=== PATIENT | male | born 1950 | race Caucasian/White ===

== ENCOUNTER 2019-11-04 13:58 | Outpatient (CLI) | payer OTHER, SELFPAY ==
--- NOTE | ~2019-11-04 | CT_ITS ---
EXAMINATION: CT brain wo con EXAM DATE: 11/04/2019 14:23 INDICATION: Blurred vision. TECHNIQUE: Spiral CT of the head was performed without contrast. Axial, coronal and sagittal images were reviewed. The dose-length product (DLP) for this examination was 681.00 mGy-cm. The exposure w as tailored according to patient size, and iterative reconstruction (ASIR) was used as additional dos e reduction technique. Comparison is made to prior examination from 08/03/2016. FINDINGS: There is no acute intraparenchymal hemorrhage. No evidence of intraparenchymal brain mass lesion. No evidence of acute infarction. There is no mass effect or midline shift. The ventricles are normal in size. There are no extra-axial collections. There are no acute calvarial fractures. T he orbits are unremarkable. Soft tissue is unremarkable. Mild ethmoid mucoperiosteal thickening. IMPRESSION: 1. No acute intracranial findings. Reviewed, dictated and finalized at location B. [employer]
--- NOTE | ~2019-11-04 | US_ITS ---
EXAMINATION: US carotid duplex BI DATE: 11/04/2019 14:57 INDICATION: Carotid stenosis. TECHNIQUE: Grayscale, color Doppler, and pulsed Doppler images of the cervical carotid arteries were obtained. The degree of vessel stenosis is placed in one of the following categories: normal, <50%, 5 0-69%, >=70% but less than near-occlusion, near-occlusion, or total occlusion. Note that percent sten osis relative to normal distal artery lumen diameter is indirectly measured from velocity measurement s as described by Michael, et al. Radiology 2003; 229:340-346. COMPARISON: Ultrasound 08/04/2016 FINDINGS: RIGHT: The right common carotid artery (CCA) peak systolic velocity (PSV) is 58 cm/s. The right internal car otid artery (ICA) PSV is 97 cm/s. The right ICA end-diastolic velocity (EDV) is 27 cm/s. The right IC A/CCA PSV ratio is 1.7. Grayscale and color Doppler images yield an estimate of <50% diameter reducti on from plaque in the ICA. There is antegrade flow in the right vertebral artery. LEFT: The left CCA PSV is 103 cm/s. The left ICA PSV is 132 cm/s. The left ICA EDV is 32 cm/s. The left ICA /CCA PSV ratio is 1.3. Grayscale and color Doppler images yield an estimate of >=50% diameter reducti on from plaque in the ICA. There is antegrade flow in the left vertebral artery. IMPRESSION: 1. <50% stenosis in the right internal carotid artery. 2. 50-69% stenosis in the left internal carotid artery. Reviewed, dictated and finalized at location A. [employer]
== END 2019-11-04 13:59 | disposition home or self-care (01) ==
LOC: ANHIMG 14:08
PROVIDERS: PCP Family Medicine; Visit Provider Physician Assistant
DX: R41.0 Disorientation, unspecified (principal); H53.8 Other visual disturbances; I65.23 Occlusion and stenosis of bilateral carotid arteries
CPT/HCPCS: 70450; 93880

== ENCOUNTER 2020-11-15 15:27 | Emergency (ER) | payer OTHER, SELFPAY ==
[2020-11-15 16:00] VITALS: BP 92/64; PULSE 86; RESP 18; TEMP 36.4; O2SAT 99
--- NOTE | 2020-11-15 18:05 | PC.NURSE ---
pt called to go back to a room with no answer
== END 2020-11-15 18:30 | disposition left against medical advice (07) ==
PROVIDERS: PCP Family Medicine
DX: Z53.21 Procedure and treatment not carried out due to patient leaving prior to being seen by health care provider (principal)
CPT/HCPCS: 99199

== ENCOUNTER 2020-11-29 12:25 | Observation (INO) | payer OTHER, SELFPAY ==
[2020-11-29] VITALS (24 sets, daily range): BP systolic 91–183; BP diastolic 58–91; PULSE 61–102; RESP 12–27; TEMP 36–36.8; O2SAT 97–98; BMI 24.5
--- NOTE | ~2020-11-29 | MR_ITS ---
EXAMINATION: MR brain/brain stem wo/w con DATE: 11/30/2020 11:33 INDICATION: Left arm numbness TECHNIQUE: Magnetic resonance imaging (MRI) of the brain and brainstem was performed without and with 15 mL Multihance intravenous contrast. Sequences included sagittal and axial T1-weighted SE, axial d iffusion-weighted FS SE, axial T2*-weighted GRE, axial T2-weighted FLAIR, and axial T2-weighted FSE. Postcontrast axial and coronal T1-weighted SE was obtained. Apparent diffusion coefficient (ADC) maps were created. COMPARISON: CT studies dated 11/29/2020 FINDINGS: There are no areas of restricted diffusion to suggest acute infarction. There is a single tiny focus of susceptibility artifact evident on the T2*weighted images along a medial sulcus near the junction of the left superior frontal gyrus and paracentral lobule. Small choroid fissure cyst at the inferior right basal ganglia. No acute intracranial hemorrhage or abnormal intracranial mass lesion. There ar e scattered areas of nonspecific increased T2-weighted signal intensity in the cerebral white matter, predominantly involving the deep and periventricular white matter which is within normal limits for age. There are no intraparenchymal signal abnormalities seen on the other pulse sequences. The ventri cles are symmetric and normal in size. There are no abnormal extra-axial fluid collections. Flow void s are seen in the cerebral arteries on the T2-weighted sequences consistent with their expected paten cy. Mild mucosal thickening the bilateral frontal and ethmoid sinuses. Visualized orbits and soft tis sues are unremarkable. There are no areas of abnormal enhancement on the post contrast images. IMPRESSION: 1. No acute intracranial process. 2. There is a single tiny focus of susceptibility artifact along a medial sulcus near the junction of the superior frontal gyrus and paracentral lobule without corresponding abnormal enhancement, mass o r other underlying brain lesion. No evident correlate on the prior CT images this likely represents s equelae prior small bleed which could be related to hypertension, trauma or less likely vasculitis, a myloid angiopathy or cavernoma. 3. A few scattered nonspecific foci of white matter T2 hyperintensity which is within normal limits f or age. Reviewed, dictated and finalized at location A. IMPRESSION: 1. No acute intracranial process. 2. There is a single tiny focus of susceptibility artifact along a medial sulcu s near the junction of the superior frontal gyrus and paracentral lobule withou t corresponding abnormal enhancement, mass or other underlying brain lesion. No evident correlate on the prior CT images this likely represents sequelae prior small bleed which could be related to hypertension, trauma or less likely vasc ulitis, amyloid angiopathy or cavernoma. 3. A few scattered nonspecific foci of white matter T2 hyperintensity which is within normal limits for age.
--- NOTE | ~2020-11-29 | XR_ITS ---
EXAMINATION: XR chest 1V portable EXAM DATE: 11/29/2020 15:55 INDICATION: Dizziness, complaining of left arm and face pain. TECHNIQUE: Portable AP frontal chest x-ray was obtained. Comparison is made to prior examination from 08/03/2016. FINDINGS: The lungs are clear. There are no pleural effusions. The cardiomediastinal silhouette is within normal limits. There is no pneumothorax suspected. There are bony degenerative changes. Ther e is mild lower thoracic dextroscoliosis. IMPRESSION: No acute cardiopulmonary findings. Reviewed, dictated and finalized at location A.
--- NOTE | ~2020-11-29 | CT_ITS ---
EXAMINATION: CT brain wo con DATE: 11/29/2020 13:58 INDICATION: Left arm numbness, left facial tingling for 3 weeks TECHNIQUE: Computed tomography (CT) of the head was performed without intravenous contrast. The mA wa s adjusted according to patient size. Iterative reconstruction technique was employed. Exam dose: 68 1.00 mGy-cm total exam DLP. COMPARISON: November 04, 2019 CT brain 09/17/2017 MRI brain FINDINGS: Cerebral atherosclerotic calcifications involving vertebral and internal carotid arteries. Chronic right basal ganglia lacunar infarct. No intracranial mass lesion or hemorrhage or recent cerebrovascular accident is evident. No midline s hift or mass effect effect. No subdural or epidural hematoma. No skull fracture or bone destruction is evident. Included paranasal sinuses and mastoid air cells ar e unremarkable. IMPRESSION: Cerebral atherosclerosis Chronic right basal ganglia lacunar infarct Reviewed, dictated and finalized at Location A. Reviewed, dictated and finalized at location B.
--- NOTE | ~2020-11-29 | CT_ITS ---
EXAMINATION: CTA brain carotid EXAM DATE: 11/29/2020 16:54 INDICATION: Left facial , arm numbness, tingling paresthesia. Symptoms intermittent for 3 weeks. TECHNIQUE: Spiral CTA of the carotid arteries was performed with intravenous injection 100 cc of Omni paque 350. Axial, coronal, sagittal reformatted images reviewed. Additional reformatted images creat ed on dedicated 3-D workstation. NASCET comparable standard used to assess the degree of arterial st enosis. Spiral CT angiogram cerebral arteries performed with the same intravenous injection of contr ast. Source images of the brain CTA transferred to dedicated workstation for 3-D rotational image cre ation. Coronal, sagittal maximum intensity pixel images also reviewed. The dose-length product (DLP ) for this examination was 1112.74 mGy-cm. The exposure was tailored according to patient size, and iterative reconstruction (ASIR) was used as additional dose reduction technique. Correlation is made to head CT earlier same date. Comparison made to Carotid CT 05/22/2017 FINDINGS: Patient has likely had interval right carotid endarterectomy accounting for the dilated car otid bulb region up to 1.6 cm, with 0% stenosis. On the left there is moderate, common carotid and ca rotid bulb arterial sclerosis with 45% stenosis, mild progression of plaque and stenosis. Some tortuo sity to the distal aspects of both internal carotid arteries. The vertebral arteries are codominant. Mild bilateral carotid siphon arterial sclerosis with no stenosis. Patient may have incomplete [place] of [place] with communicating arteries not visualized. There may also be left-sided artery of Textile Science Technician on, congenital variant. There is no carotid or vertebral basilar arterial dissection. There are no ce rebral artery aneurysms. There is symmetric cerebral artery arborization. The sagittal, transverse an d sigmoid sinuses enhance normally, no venous sinus thrombosis. Internal cerebral veins also enhance normally. There is no acute intraparenchymal hemorrhage. No evidence of intraparenchymal brain mass lesion. N o evidence of acute infarction. There is no mass effect or midline shift. There is no obstructive hyd rocephalus suspected. There are no extra-axial collections. There are no calvarial acute fractures. There is advanced cervical spondylosis. IMPRESSION: 1. Right carotid bulb 0% stenosis. 2. Left carotid bulb moderate plaque and 45% stenosis. 3. Severe cervical spondylosis. 4. No acute intracranial findings. Reviewed, dictated and finalized at location A.
--- NOTE | 2020-11-29 13:48 | ECG_ITS ---
Measurements Intervals [place] Rate: 66 P: 47 MT: 156 QRS: -4 QRSD: 87 T: 44 QT: 411 QTc: 431 Interpretive Statements SINUS RHYTHM BASELINE ARTIFACT- I, II, AVR, V4-V6 NORMAL ECG Electronically Signed On 11-29-2020 17:49:58 CDT by Robert Jensen D.O.
--- NOTE | 2020-11-29 14:30 | ED.NEUROSD ---
HPI - Neuro Symptoms/Deficit General Chief Complaint: Neuro Symptoms/Deficit Stated Complaint: dizzy, tingling face, lt arm x 3 weeks Time Seen by Provider: 11/29/20 14:02 Source: patient Mode of arrival: ambulatory Limitations: no limitations History of Present Illness HPI Narrative: This is a 70 year old male with history of multiple medical problems who presents for evaluation left face and left arm numbness and tingling. He reports having intermittent episodes of facial tingling and left arm tingling with dizziness. This has been occurring for 3 weeks. He denies focal weakness or speech difficulties. He states 6-7 years ago he had something similar and he was found to blockage to right carotid and he had an endarterectomy. He also reports last year he was scheduled to have an MRI and echo for evaluation of dizziness and confusion. He did not get those procedures done due to covid. He reports chronic lower back pain. Onset (ago): week(s) (3) Related Data Home Medications Medication Instructions Recorded Confirmed aspirin 81 mg tablet,delayed 81 mg PO DAILY 10/21/19 11/29/20 release amitriptyline 50 mg PO .qhs 11/29/20 11/29/20 diclofenac sodium 75 mg PO DAILY 11/29/20 11/29/20 finasteride 5 mg PO DAILY 11/29/20 11/29/20 Allergies Allergy/AdvReac Type Severity Reaction Status Date / Time No Known Allergies Allergy Verified 11/29/20 12:35 Review of Systems Review of Systems: All systems reviewed & are unremarkable except as noted in HPI and below Constitutional: Constitutional: Denies chills and Denies fever(s) ENT: Reports vertigo and Reports dizziness Cardiovascular: Cardiovascular: Denies chest pain Respiratory: Respiratory: Denies cough and Denies dyspnea Gastrointestinal: Gastrointestinal: Denies abdominal pain, Reports nausea and Denies vomiting Neurologic: Reports dizziness, Denies headache(s) and Reports numbness PMFSH Past Medical History Medical History (Updated 11/29/20 @ 20:12 by Audrey Dias MD) HLD (hyperlipidemia) HTN (hypertension) Spinal stenosis Surgical History Surgical History (Updated 11/29/20 @ 14:37 by Audrey Dias MD) H/O endarterectomy Family History Family History Mother Hypertension Social History Social History (Updated 11/01/20 @ 10:57 by Mere Pritchard) Smoking status: Never smoker Second hand tobacco smoke exposure: No Alcohol intake: never Substance use: never Substance use type: does not use Gender identity (if verbalized by the patient): Male Sexual Orientation (if Verbalized by the Patient): Straight or Heterosexual Spiritual care concerns: No Exam Const: General: no acute distress and alert Orientation/consciousness: patient oriented x3 HENMT: Ears: external ears normal and TM's normal bilaterally Eyes: Pupils: Equal, round and reactive pupils present EOM: EOMs intact bilaterally Chest: Chest palpation & inspection: normal inspection of the chest Resp: Effort & Inspection: normal respiratory effort and no retractions Auscultation: clear to auscultation bilaterally Cardio: Rate: regular rate Rhythm: regular rhythm Heart sounds: no murmurs GI: GI Palp: Yes Soft to palpation, No Tenderness to palpation present (GI) and No Guarding due to palpation present (GI) Auscultation: normal bowel sounds Skin: General skin exam: normal color Rashes: no rashes Neuro: General: patient oriented x3, moves all extremities, no focal motor deficits and CN's II-XI intact bilaterally Cranial nerves: Yes Nystagmus not present Speech: normal speech Psych: Mental Status: mental status grossly normal Affect: normal affect Course Reevaluation(s) Reevaluation #1: I made patient aware that he will be admitted to hospital for further evaluation. Date: 11/29/20 Time: 16:20 Consultations Consultation #1: I Discussed case with Marietta Rosa and she accepts t
[2020-11-29 15:04] LABS: Basophils Absolute Auto 0.1 K/mm3 (0.0-0.1); Eosinophils Absolute Auto 0.7 K/mm3 (0-0.3); Eosinophils Percent Auto 9.5 % (0-4.4); Hemoglobin 13.6 g/dL (14.0-18.0); Immature Granulocyte Absolute 0.02 K/mm3 (0.00-0.031); Immature Granulocyte Percent A 0.3 % (0-0.5); Lymphocytes Absolute Auto 1.54 K/mm3 (0.9-3.2); Lymphocytes Percent Auto 22.2 % (18.3-44.2); Mean Corpuscular HGB Conc 33.2 g/dl (32-36); Mean Corpuscular Hemoglobin 29.8 pg (26-34); Mean Corpuscular Volume 89.7 fl (80-100); Monocytes Absolute Auto 0.4 K/mm3 (0.1-0.6); Monocytes Percent Auto 6.3 % (2.6-8.5); Neutrophils Absolute Auto 4.2 K/mm3 (1.3-6.7); Neutrophils Percent Auto 60.7 % (45.5-73.1); Platelet Count Result 279 k/mm3 (150-375); Red Blood Count 4.57 M/mm3 (4.6-6.20); Red Cell Distribution Width 14.9 % (11.5-14.5); White Blood Count 6.9 K/mm3 (4.5-10.0)
[2020-11-29 15:11] LABS: Anion Gap 2 mmol/L (8-16); Blood Urea Nitrogen 21 mg/dL (9-20); Calcium 9.5 mg/dL (8.4-10.2); Carbon Dioxide 29 mmol/L (22-30); Chloride 110 mmol/L (98-107); Estimated CRCL calculation 51 ml/min; Estimated Glomerular Filt Rate 55; Glucose 103 mg/dL (75-110); INR 0.9; Potassium 3.7 mmol/L (3.4-5.0); Sodium 141 mmol/L (137-145)
[2020-11-29 15:12] LABS: Partial Thromboplastin Time 29.3 SECONDS (22.3-36.8)
[2020-11-29 15:23] LABS: Troponin I < 0.012 ng/mL (0.000-0.034)
[2020-11-29] MEDS: LACTATED RINGERS 1,000 ML 999 ML IV CONT (15:31)
--- NOTE | 2020-11-29 17:39 | ADMGEN ---
This patient, Reese Lynch Jr., was admitted to [facility] Surg Room 320-01. Patient/family oriented to hospital policies and general routines including ID bracelet, bed and alarms, visiting hours, pain management, procedures, bathroom and other care routines, personal items, smoking policy, room service/diet, and visiting hours. Information on how to activate the Rapid Response Team has been discussed. Patient/Family are encouraged to report perceived risks to care and to ask questions if they do not understand what they are told or what they should do.
--- NOTE | 2020-11-29 20:50 | PM.IMHP ---
H&P: HPI History of Present Illness Date/Time: 11/29/20 20:50 Chief Complaint: Left-sided paresthesias. Narrative: This is a very pleasant 70-year-old male with history of CVA, right carotid artery stenosis status post carotid endarterectomy, hypertension, and hyperlipidemia presented to the emergency department earlier today via private vehicle from home for evaluation of left-sided paresthesias. Over the past 3 weeks he has had intermittent episodes of tingling, mainly in the left side of his face but occasionally down his left arm. He sees no pattern as to when these occur and they do not last very long. He has mild dizziness with some of these episodes as well however he goes on to say that for the past several months he has been having issues with dizziness and confusion, more so when driving at night. His primary care provider ordered an echocardiogram an MRI on him couple of months ago however he has not had that done yet due to COVID. At the time my evaluation he does not have any symptoms. He states compliance with his home medication. He has not had any recent falls or head trauma. He denies focal weakness. No acute auditory or visual changes. He has not noticed any facial droop with these episodes. No involvement of the tongue. No dysarthria or dysphagia. Review of Systems Review of Systems: Narrative: Twelve systems were reviewed with pertinent positives and negatives as per HPI. As per HPI, intermittently over the last several months he has had issues with confusion, mainly when driving at nighttime. In fact at 1 point time he drove 75 miles away from his home and did not know where he was or how he got there. He has been having mild episodes of confusion at home as well, but cannot give me any specific examples. No recent cold or flu symptoms. He denies fever, chills, and sweats. No sick contacts. He denies chest pain palpitations. No nausea, vomiting, or diarrhea. No dysuria. Except as documented, other systems were reviewed and are negative. [facility] Past Medical History Medical History (Updated 11/29/20 @ 23:02 by Marietta Rosa PA-C) Anemia Anxiety Benign prostatic hyperplasia Carotid artery disease Status post right carotid endarterectomy. Left carotid bulb moderate plaque and 45% stenosis on CTA of the head and neck dated 11/29/2020. Cerebrovascular accident (~07/2016) Attributed to carotid artery disease. Status post right carotid endarterectomy. Depression Diastolic dysfunction Echocardiogram in July 2016 showed normal left ventricular systolic function, mild LVH, and grade 1 diastolic dysfunction with an ejection fraction of 60%. Gastroesophageal reflux disease History of kidney stones History of staph infection (~2009) Staph pneumonia, possible empyema. Hyperlipidemia Hypertension Spinal stenosis Surgical History Surgical History (Updated 11/29/20 @ 22:58 by Marietta Rosa PA-C) History of arthroscopy of right knee History of bilateral carpal tunnel release History of right-sided carotid endarterectomy History of spinal surgery Family History Family History Mother Hypertension Social History Social History (Updated 11/29/20 @ 22:59 by Marietta Rosa PA-C) Social History: Surrogate decision maker: Laron Lynch, son. Code status: Full code. Smoking status: Never smoker Second hand tobacco smoke exposure: No Alcohol intake: never Substance use: never Substance use type: does not use Additional living arrangements comments: Lives in [place]. One son lives at home with him. 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 Gender identity (if verbalized by the patient): Male Sexual Orientation (if Verbalized by the Patient): Straight or Heterosexual Spiritual care concerns: No Meds Home Medications and Allergies Home Medications Medication
[2020-11-30] VITALS (8 sets, daily range): BP systolic 98–154; BP diastolic 48–84; PULSE 59–93; RESP 16; TEMP 36.4–36.7; O2SAT 97–98
[2020-11-30] MEDS: AMITRIPTYLINE HCL 25 MG TABLET 50 MG PO (00:18)
--- NOTE | 2020-11-30 06:00 | ECHO_ITS ---
Patient Info Name: Reese Lynch Age: 70 years : 1950 Gender: Male Ht: 71 in Wt: 175 lbs BSA: 2.00 m2 BP: 171 / 83 mmHg Exam Date: 11/30/2020 1:23 PM Exam Location: [facility] Pulmonary Patient Status: Outpatient Admit Date: 11/29/2020 Staff Ordering Physician: Audrey Dias MD Loan Manager: Enoch Og RDCS, RT Attending Provider: Juliana Blackwell PA-C Referring Physician: Arun PEARSON; Exam Type: CA echo doppler color flow Study Info Indications G45.8 - Other transient cerebral ischemic attacks and related syndromes Complete two-dimensional, color flow and Doppler transthoracic echocardiogram is performed. Strain analysis performed. Summary 1. Complete two-dimensional, color flow and Doppler transthoracic echocardiogram is performed. 2. Left ventricular chamber dimension is normal. 3. Left ventricular systolic function is normal, estimated at 65-70%. 4. The left ventricular diastolic function is grade I diastolic dysfunction. 5. E/e' 7 is not elevated. 6. Global longitudinal strain is normal at -22.0%. 7. There is mild aortic valve sclerosis. Left Ventricle E/e' 7 is not elevated. Global longitudinal strain is normal at -22.0%. Left ventricular chamber dimension is normal. Left ventricular systolic function is normal, estimated at 65-70%. The left ventricular diastolic function is grade I diastolic dysfunction. Right Ventricle Right ventricular chamber dimension is normal. Right ventricular systolic function is normal. Left Atria Left atrial chamber dimension is normal. Right Atria Right atrial chamber dimension is normal. Aortic Valve The aortic valve is trileaflet. There is mild aortic valve sclerosis. There is no aortic valve stenosis. There is no aortic valve regurgitation. Pulmonic Valve There is no pulmonic regurgitation. Mitral Valve There is no mitral valve stenosis. There is no mitral valve regurgitation. Tricuspid Valve There is no tricuspid valve regurgitation. Pericardium/Pleural There is no pericardial effusion. Inferior Vena Cava Normal inferior vena cava with >50% collapse upon inspiration consistent with normal right atrial pressure, 5 mmHg. Aorta The aortic root size at the sinus of Valsalva is normal. Left Ventricular Outflow Tract Name Value Normal LVOT 2D LVOT Diameter 2.0 cm LVOT Doppler LVOT Peak Gradient 4 mmHg LVOT Mean Gradient 2 mmHg LVOT VTI 22 cm LVOT VTI/AV VTI Ratio 0.7 LVOT Stroke Volume 68 ml LVOT CO 4.4 l/min LVOT CI 2.2 l/min/m2 Mitral Valve Name Value Normal MV Doppler MV Decel [place] 206 cm/s2 MV PHT
[2020-11-30 06:16] LABS: Hematocrit 37.5 % (42.0-52.0); Hemoglobin 12.2 g/dL (14.0-18.0); Mean Corpuscular HGB Conc 32.5 g/dl (32-36); Mean Corpuscular Hemoglobin 28.9 pg (26-34); Mean Corpuscular Volume 88.9 fl (80-100); Mean Platelet Volume 9.9 fl (7.4-10.4); Platelet Count Result 248 k/mm3 (150-375); Red Blood Count 4.22 M/mm3 (4.6-6.20); Red Cell Distribution Width 14.6 % (11.5-14.5); White Blood Count 6.7 K/mm3 (4.5-10.0)
[2020-11-30 06:27] LABS: Alanine Aminotransferase 10 U/L (4-50); Albumin Level 3.6 g/dL (3.5-5.1); Alkaline Phosphatase 78 U/L (38-126); Anion Gap 5 mmol/L (8-16); Aspartate Amino Transferase 20 U/L (17-59); Bilirubin,Total 0.3 mg/dL (0.2-1.3); Blood Urea Nitrogen 18 mg/dL (9-20); Calcium 9.1 mg/dL (8.4-10.2); Carbon Dioxide 27 mmol/L (22-30); Chloride 111 mmol/L (98-107); Cholesterol 114 mg/dL (0-200); Estimated CRCL calculation 66 ml/min; Estimated Glomerular Filt Rate > 60; Glucose 89 mg/dL (75-110); HDL Direct 34 mg/dL; Potassium 3.4 mmol/L (3.4-5.0); Sodium 143 mmol/L (137-145); Triglycerides 108 mg/dL (<150)
[2020-11-30 06:38] LABS: LDL Cholesterol Direct 58 mg/dL
[2020-11-30] MEDS: TAMSULOSIN HCL 0.4 MG CAPSULE PO (08:33)
[2020-11-30] MEDS: DULoxetine HCL 60 MG CAPSULE.DR PO (08:33)
[2020-11-30] MEDS: FINASTERIDE 5 MG TABLET PO (08:33)
[2020-11-30] MEDS: ATORVASTATIN 20 MG TABLET PO (08:34)
[2020-11-30] MEDS: buPROPion HCL XL (24 HR) 150 MG TABCR PO (08:34)
[2020-11-30] MEDS: CLOPIDOGREL BISULFATE 75 MG TABLET PO (08:34)
[2020-11-30] MEDS: amLODIPine BESYLATE 5 MG TABLET 10 MG PO (08:34)
[2020-11-30] MEDS: ASPIRIN 81 MG ENTERIC TABLET PO (08:34)
[2020-11-30] MEDS: PANTOPRAZOLE 40 MG TABLET PO (08:34)
--- NOTE | 2020-11-30 11:11 | WPDNEURCNPN ---
Assessment and Plan Assessment and plan (1) Hyperlipidemia: Code(s): E78.5 - Hyperlipidemia, unspecified Status: Acute (2) Hypertension: Code(s): I10 - Essential (primary) hypertension Status: Acute (3) Paresthesia: Code(s): R20.2 - Paresthesia of skin Status: Acute (4) HTN (hypertension): Code(s): I10 - Essential (primary) hypertension Status: Acute (5) TIA (transient ischemic attack): Code(s): G45.9 - Transient cerebral ischemic attack, unspecified Status: Acute Additional Plan possibility of the TIA, at present will continue the medication as such after the MRI if necessary will continue the Plavix only for 4 weeks Consult date: 11/30/20 Time Seen: 09:45 HPI: Reese Lynch Joao is a 70 year old male has been admitted to the hospital through the emergency room where he was brought by the private vehicle from home for the complaints of left-sided paresthesias along with the complaints of mild dizziness of several months duration. patient was suggested to have the echocardiogram and MRI but he was unable to go through because of the COVID he is taking his medications regularly, does have ongoing history of anemia, anxiety, status post right carotid endarterectomy with left carotid bulb moderate plaque and 45% stenosis and is scheduled to have the CTA of the head and neck on November 29, 2020 additionally has history of cardiac dysfunction hypertension and spinal stenosis. at this stage he is receiving clopidogrel 75 mg daily along with aspirin 81 mg daily atorvastatin 20 mg daily and other medications as well, evaluation up until now revealed the none no significant routine lab abnormal UA, CTA with left carotid bulb moderate plaque and 45% stenosis along with severe cervical spondylosis but no acute intracranial findings, chest x-ray is negative, and MRI of the brain at this stage is pending Review of Systems Review of Systems: All systems reviewed & are unremarkable except as noted in HPI and below PMFSH Past Medical History Medical History Anemia Anxiety Benign prostatic hyperplasia Carotid artery disease Status post right carotid endarterectomy. Left carotid bulb moderate plaque and 45% stenosis on CTA of the head and neck dated 11/29/2020. Cerebrovascular accident (~07/2016) Attributed to carotid artery disease. Status post right carotid endarterectomy. Depression Diastolic dysfunction Echocardiogram in July 2016 showed normal left ventricular systolic function, mild LVH, and grade 1 diastolic dysfunction with an ejection fraction of 60%. Gastroesophageal reflux disease History of kidney stones History of staph infection (~2009) Staph pneumonia, possible empyema. Hyperlipidemia Hypertension Spinal stenosis Surgical History Surgical History History of arthroscopy of right knee History of bilateral carpal tunnel release History of right-sided carotid endarterectomy History of spinal surgery Family History Family History Mother Hypertension Social History Social History (Updated 11/29/20 @ 22:59 by Marietta Rosa PA-C) Social History: Surrogate decision maker: Laron Lynch, jacob. Code status: Full code. Smoking status: Never smoker Second hand tobacco smoke exposure: No Alcohol intake: never Substance use: never Substance use type: does not use Additional living arrangements comments: Lives in [place]. One son lives at home with him. 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 Gender identity (if verbalized by the patient): Male Sexual Orientation (if Verbalized by the Patient): Straight or Heterosexual Spiritual care concerns: No Meds Home Medications and Allergies Home Medications Medication Instructions Rec
[2020-11-30] MEDS: CYANOCOBALAMIN 1,000 MCG TABLET 1000 MCG PO (15:10)
--- NOTE | 2020-11-30 17:25 | PM.DS ---
DS: Admitting Diagnosis Admitting Diagnosis Admitting Diagnosis: Paresthesias DS: Discharge Diagnosis Discharge Diagnosis (1) TIA (transient ischemic attack): Code(s): G45.9 - Transient cerebral ischemic attack, unspecified Status: Acute Assessment and Plan: Discharge Summary (Date of service 11/30/20): Mr. Lynch is a 70 y.o. male with PMH significant for history of CVA, right carotid artery stenosis status post carotid endarterectomy, hypertension, and hyperlipidemia presented to the emergency department via private vehicle from home for evaluation of left-sided paresthesias for 3 weeks. He noted intermittent tingling in the left side of his face and occasionally down the left arm. He also noted some occasional confusion and dizziness with night driving. On chart review, he saw his PCP for these complaints 10/[address] brain and carotid doppler US at that time. He was also referred to his vascular surgeon for concern regarding his confusion and dizziness at night 11/2019 and CTA head and neck was recommended at that time. On arrival to the emergency department, vitals were stable. Labs were notable for mild normocytic anemia with Hb 13.6 and Hct 41. Chloride was [address] brain demonstrated a chronic right basal ganglia lacunar infarct and cerebral atherosclerosis. CTA head and neck demonstrated no evidence of acute infarct or mass lesion. There was findings of interval right CEA with 0% stenosis and moderate left common carotid and carotid bulb sclerosis with 45% stenosis. Neurology, Dr. Marvin, was consulted from the emergency department and recommended plavix. TPA was not indicated given prolonged duration of symptoms and NIHSS 2 with minor symptoms. He was admitted to the hospitalist service with neurology consultation. Telemetry demonstrated sinus rhythm. Echocardiogram was performed and demonstrated normal LV dimension with EF 65-70%, grade I diastolic dysfunction, and mild aortic valve sclerosis. MRI demonstrated no acute infarction. There was a single tiny focus of susceptibility artifact at the junction of the left superior frontal gyrus and para central lobule which radiology read as likely insurance follow up representative of a prior small bleed related to hypertension or trauma and less likely vasculitis, amyloid angiopathy, or cavernoma . This finding was reviewed with Dr. Marvin, neurologist, who recommended that the patient continue DAPT with ASA and plavix for 1 month. He will see him outpatient in 2-3 weeks to discuss any further necessary workup and plans to either continue or discontinue plavix. He will likely benefit from follow-up brain MRI in 3-6 months and will follow-up with Dr. Marvin outpatient. His vitamin B12 level was also borderline low and was supplemented with oral cyanocobalamin. He was advised to keep a blood pressure log and follow-up with his primary care doctor in [address] Marvin in 2-3 weeks. Worrisome signs and symptoms which would warrant return to the emergency department were discussed and he verbalized understanding. (2) Paresthesia: Code(s): R20.2 - Paresthesia of skin Status: Acute Assessment and Plan: Patient reports intermittent paresthesias on the left side of his face and left upper extremity intermittently over 3 weeks. Concerning given his history of CVA. Monitor on telemetry overnight. Brain MRI and echocardiogram in a.m. CTA of the head and neck demonstrates left carotid bulb with moderate plaque and 45% stenosis. Right carotid bulb had 0% stenosis, status post carotid endarterectomy. Continue aspirin and statin. He was given a dose of clopidogrel in the emergency department I will defer to Dr. Marvin whether not to continue that, depending on his MRI. Check B12 levels as well given paresthesias. (3) Hyperlipidemia: Code(s): E78.5 - Hyperlipidemia, unspecified Status: Acute Assessment and Plan: LFTs reviewed and normal. Lipid panel at target w
--- NOTE | 2020-11-30 18:07 | PC.NURSE ---
Pt has discharge orders. Pt's IV has been removed, and tele alarm has been removed. Discharge paperwork has been reviewed with pt, with opportunities for questions provided. Pt exhibited good understanding of all discharge instructions. Pt will be assisted to the front of the building by staff, in a wheelchair.
== END 2020-11-30 08:15 | disposition home or self-care (01) ==
LOC: ANHED 14:28 → ANH3MEDSUR 16:15
PROVIDERS: Physician Assistant; Admitting Provider Family Medicine; Emergency Provider General Practice; PCP Family Medicine; Visit Provider Physician Assistant
DX: G45.9 Transient cerebral ischemic attack, unspecified (principal); R20.2 Paresthesia of skin; E78.5 Hyperlipidemia, unspecified; D64.9 Anemia, unspecified; I11.9 Hypertensive heart disease without heart failure; I35.8 Other nonrheumatic aortic valve disorders; I95.1 Orthostatic hypotension; E53.8 Deficiency of other specified B group vitamins; K21.9 Gastro-esophageal reflux disease without esophagitis; F41.8 Other specified anxiety disorders; N40.0 Benign prostatic hyperplasia without lower urinary tract symptoms; Z86.73 Personal history of transient ischemic attack (TIA), and cerebral infarction without residual deficits; Z79.82 Long term (current) use of aspirin
CPT/HCPCS: 36415; 70450; 70496; 70498; 70553; 71045; 80048; 80053; 80061; 82607; 83735; 84443; 84484; 85025; 85027; 85610; 85730; 93005; 93306; 96360; 99285; A9270; A9577; G0378; J7120; Q9967

== ENCOUNTER 2020-12-15 14:37 | Emergency (ER) | payer OTHER, SELFPAY ==
[2020-12-15 14:46] VITALS: BP 121/79; PULSE 85; RESP 18; TEMP 36.1; O2SAT 95
--- NOTE | 2020-12-15 16:41 | ED.EAR ---
HPI - Ear Problem General Chief complaint: Ear Stated complaint: bleeding inside lt ear Time Seen by Provider: 12/15/20 16:09 Source: patient Mode of arrival: ambulatory Limitations: no limitations History of Present Illness HPI Narrative: Patient is a 70-year-old male complaining of bleeding in his left ear, started after he was cleaning it with a Q-tip. Patient denies any other injuries or bleeding. MD Complaint: ear pain Location: left ear Relieving factors: nothing Exacerbating factors: nothing Related Data Home Medications Medication Instructions Recorded Confirmed aspirin 81 mg tablet,delayed 81 mg PO DAILY 10/21/19 11/29/20 release diclofenac sodium 75 mg PO DAILY 11/29/20 11/29/20 finasteride 5 mg PO DAILY 11/29/20 11/29/20 Allergies Allergy/AdvReac Type Severity Reaction Status Date / Time No Known Allergies Allergy Verified 12/15/20 15:18 Review of Systems Review of Systems: All systems reviewed & are unremarkable except as noted in HPI and below PMFSH Past Medical History Medical History Anemia Anxiety Benign prostatic hyperplasia Carotid artery disease Status post right carotid endarterectomy. Left carotid bulb moderate plaque and 45% stenosis on CTA of the head and neck dated 11/29/2020. Cerebrovascular accident (~07/2016) Attributed to carotid artery disease. Status post right carotid endarterectomy. Depression Diastolic dysfunction Echocardiogram in July 2016 showed normal left ventricular systolic function, mild LVH, and grade 1 diastolic dysfunction with an ejection fraction of 60%. Gastroesophageal reflux disease History of kidney stones History of staph infection (~2009) Staph pneumonia, possible empyema. Hyperlipidemia Hypertension Spinal stenosis Surgical History Surgical History History of arthroscopy of right knee History of bilateral carpal tunnel release History of right-sided carotid endarterectomy History of spinal surgery Family History Family History Mother Hypertension Social History Social History Social History: Surrogate decision maker: Laron Lynch, son. Code status: Full code. Smoking status: Never smoker Second hand tobacco smoke exposure: No Alcohol intake: never Substance use: never Substance use type: does not use Additional living arrangements comments: Lives in [place]. One son lives at home with him. 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 Gender identity (if verbalized by the patient): Male Spiritual care concerns: No Exam Const: General: cooperative, healthy appearing, comfortable, no acute distress, well developed, alert and awake; No confusion Orientation/consciousness: oriented to person, oriented to place, oriented to time, patient oriented x3 and No confusion Limitations: no limitations HENMT: Head: normal to inspection, normocephalic and atraumatic Ears: hearing grossly normal bilaterally, TM normal on the right and TM abnormal (Blood in the left external ear canal, perforation of the left tympanic memb) General nose exam: Normal external nose present, Normal nares present and No nasal discharge present Face and sinus: normal facial exam Mouth: Yes Normal oral and palatal mucosa present, Yes lip normal, Yes tongue normal and Yes oropharynx normal Throat: posterior oropharynx normal, tonsils normal and uvula midline Eyes: General: appearance normal, both eyes and all related structures Pupils: Equal, round and reactive pupils present EOM: EOMs intact bilaterally Neck: Neck: normal visual inspection, full ROM, no lymphadenopathy and no meningeal signs Resp: Effort & Inspection: normal respiratory effort, able to speak in complete se
== END 2020-12-15 16:58 | disposition home or self-care (01) ==
PROVIDERS: Emergency Provider Emergency Medicine; PCP Family Medicine
DX: H72.92 Unspecified perforation of tympanic membrane, left ear (principal); Z79.82 Long term (current) use of aspirin; I25.10 Atherosclerotic heart disease of native coronary artery without angina pectoris; E78.5 Hyperlipidemia, unspecified; I10 Essential (primary) hypertension; N40.0 Benign prostatic hyperplasia without lower urinary tract symptoms; K21.9 Gastro-esophageal reflux disease without esophagitis; Z86.73 Personal history of transient ischemic attack (TIA), and cerebral infarction without residual deficits; Z87.442 Personal history of urinary calculi; Z86.2 Personal history of diseases of the blood and blood-forming organs and certain disorders involving the immune mechanism
CPT/HCPCS: 99283

== ENCOUNTER 2021-06-29 03:21 | Day surgery (SDC) | payer OTHER, SELFPAY ==
[2021-06-20 13:09] VITALS: BMI 23.1
[2021-06-20 13:19] VITALS: BMI 22.3
--- NOTE | 2021-06-28 09:52 | WPDANESEPPF ---
Anes - Initial Pre Proc Eval Procedure: Operation Date: 06/29/21 13:00 Proposed Procedures p Colonoscopy - Karl Olivares MD Date/Time: 06/28/21 09:52 Surgeon: Karl Olivares MD Pre Op Diagnosis: positive cologuard Patient Data Age: 70 Gender: M Height: 1.8 m Weight: 72.5 kg Allergies Allergy/AdvReac Type Severity Reaction Status Date / Time No Known Allergies Allergy Verified 06/29/21 12:06 Home Medications Medication Instructions Recorded Confirmed Type aspirin 81 mg tablet,delayed 81 mg PO DAILY 10/21/19 06/20/21 History release duloxetine 60 mg capsule,delayed 60 mg PO DAILY #90 cap 02/08/21 06/20/21 Rx release finasteride 5 mg tablet 5 mg PO DAILY #90 tablet 02/08/21 06/20/21 Rx tamsulosin 0.4 mg capsule 0.4 mg PO DAILY #90 cap 02/08/21 06/20/21 Rx amitriptyline 50 mg tablet 50 mg PO QHS #90 tablet 05/03/21 06/20/21 Rx bupropion HCl 150 mg 24 hr tablet, 150 mg PO QAM #90 tablet 05/18/21 06/20/21 Rx extended release amlodipine 10 mg tablet 10 mg PO DAILY #90 tablet 05/20/21 06/20/21 Rx diclofenac sodium 75 mg 75 mg PO BID PRN #60 tablet 05/31/21 06/20/21 Rx tablet,delayed release clopidogrel 75 mg tablet 75 mg PO QAM #90 tablet 06/13/21 06/20/21 Rx atorvastatin 40 mg tablet 40 mg PO DAILY 30 Days #30 tablet 06/27/21 Rx cyanocobalamin (vitamin B-12) 1,000 mcg PO QAM 30 Days #30 tablet 06/27/21 Rx 1,000 mcg tablet pantoprazole 40 mg tablet,delayed 40 mg PO QAM 30 Days #30 tablet 06/27/21 Rx release Patient hx anesthesia problems: none Family hx anesthesia problems: none Results Review: All pre-operative results and documents have been reviewed as part of the pre-operative evaluation. [facility] Past Medical History Medical History Anemia Anxiety Benign prostatic hyperplasia Carotid artery disease Status post right carotid endarterectomy. Left carotid bulb moderate plaque and 45% stenosis on CTA of the head and neck dated 11/29/2020. Cerebrovascular accident (~07/2016) Attributed to carotid artery disease. Status post right carotid endarterectomy. Depression Diastolic dysfunction Echocardiogram in July 2016 showed normal left ventricular systolic function, mild LVH, and grade 1 diastolic dysfunction with an ejection fraction of 60%. Gastroesophageal reflux disease History of kidney stones History of staph infection (~2009) Staph pneumonia, possible empyema. Hyperlipidemia Hypertension Spinal stenosis Surgical History Surgical History History of arthroscopy of right knee History of bilateral carpal tunnel release History of right-sided carotid endarterectomy History of spinal surgery Family History Family History Mother Hypertension Social History Social History Social History: Surrogate decision maker: Laron Lynch, son. Code status: Full code. Smoking status: Never smoker Second hand tobacco smoke exposure: No Alcohol intake: never Substance use: current Substance use type: marijuana Other substance usage details: EVERY DAY Last use: 4 hours ago - pain to relax Living arrangements: with family Additional living arrangements comments: Lives in [place]. One son lives at home with him. 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 Gender identity (if verbalized by the patient): Male Sexual Orientation (if Verbalized by the Patient): Straight or Heterosexual Spiritual care concerns: No Anes - Eval Final PreProcedure Day of Procedure 06/28/21 09:52 Patient weight: normal Heart: regular rate and rhythm Lungs: clear to auscultation and normal air movement Airway: Mallampati scale class II Neurological: alert and oriented Last oral intake:
--- NOTE | 2021-06-28 14:26 | PM.HPGS ---
History of Present Illness History of Present Illness Consent: Risks, benefits, and alternatives have been discussed and questions answered. Patient agrees to proceed with procedure. Chief complaint: positive cologuard Narrative: Reese Lynch Jr. is a 70 year old male referred for colon cancer screening. He recently performed a Cologuard test that was positive Review of Systems Review of Systems: All systems reviewed & are unremarkable except as noted in HPI and below PMFSH Past Medical History Medical History Anemia Anxiety Benign prostatic hyperplasia Carotid artery disease Status post right carotid endarterectomy. Left carotid bulb moderate plaque and 45% stenosis on CTA of the head and neck dated 11/29/2020. Cerebrovascular accident (~07/2016) Attributed to carotid artery disease. Status post right carotid endarterectomy. Depression Diastolic dysfunction Echocardiogram in July 2016 showed normal left ventricular systolic function, mild LVH, and grade 1 diastolic dysfunction with an ejection fraction of 60%. Gastroesophageal reflux disease History of kidney stones History of staph infection (~2009) Staph pneumonia, possible empyema. Hyperlipidemia Hypertension Spinal stenosis Surgical History Surgical History History of arthroscopy of right knee History of bilateral carpal tunnel release History of right-sided carotid endarterectomy History of spinal surgery Family History Family History Mother Hypertension Social History Social History Social History: Surrogate decision maker: Laron Lynch, son. Code status: Full code. Smoking status: Never smoker Second hand tobacco smoke exposure: No Alcohol intake: never Substance use: current Substance use type: marijuana Other substance usage details: EVERY DAY Last use: 4 hours ago - pain to relax Living arrangements: with family Additional living arrangements comments: Lives in [place]. One son lives at home with him. 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 Gender identity (if verbalized by the patient): Male Sexual Orientation (if Verbalized by the Patient): Straight or Heterosexual Spiritual care concerns: No Meds Home Medications and Allergies Home Medications Medication Instructions Recorded Confirmed Type aspirin 81 mg tablet,delayed 81 mg PO DAILY 10/21/19 06/20/21 History release duloxetine 60 mg capsule,delayed 60 mg PO DAILY #90 cap 02/08/21 06/20/21 Rx release finasteride 5 mg tablet 5 mg PO DAILY #90 tablet 02/08/21 06/20/21 Rx tamsulosin 0.4 mg capsule 0.4 mg PO DAILY #90 cap 02/08/21 06/20/21 Rx amitriptyline 50 mg tablet 50 mg PO QHS #90 tablet 05/03/21 06/20/21 Rx bupropion HCl 150 mg 24 hr tablet, 150 mg PO QAM #90 tablet 05/18/21 06/20/21 Rx extended release amlodipine 10 mg tablet 10 mg PO DAILY #90 tablet 05/20/21 06/20/21 Rx diclofenac sodium 75 mg 75 mg PO BID PRN #60 tablet 05/31/21 06/20/21 Rx tablet,delayed release clopidogrel 75 mg tablet 75 mg PO QAM #90 tablet 06/13/21 06/20/21 Rx atorvastatin 40 mg tablet 40 mg PO DAILY 30 Days #30 tablet 06/27/21 Rx cyanocobalamin (vitamin B-12) 1,000 mcg PO QAM 30 Days #30 tablet 06/27/21 Rx 1,000 mcg tablet pantoprazole 40 mg tablet,delayed 40 mg PO QAM 30 Days #30 tablet 06/27/21 Rx release Allergies Allergy/AdvReac Type Severity Reaction Status Date / Time No Known Allergies Allergy Verified 06/20/21 13:09 Exam Resp: Auscultation: clear to auscultation bilaterally Cardio: Rate: regular rate Rhythm: regular rhythm GI: GI Palp: Yes Soft to palpation and No Tenderness to palpation present (GI) Assessment and Plan Assessment an
[2021-06-29 11:50] VITALS: BP 154/77; PULSE 93; RESP 16; TEMP 36.7; O2SAT 97; BMI 23.7
[2021-06-29] MEDS: LACTATED RINGERS 1,000 ML 150 ML IV CONT (12:28)
[2021-06-29 12:58] VITALS: BP 124/77; PULSE 59; RESP 19; O2SAT 99
[2021-06-29 13:08] VITALS: BP 101/68; PULSE 79; RESP 20; O2SAT 98
[2021-06-29] MEDS: ONDANSETRON INJ 4 MG/2 ML VIAL IV PUSH (13:09)
[2021-06-29 13:18] VITALS: BP 126/68; PULSE 78; RESP 19; O2SAT 97
--- NOTE | 2021-06-29 13:34 | SUR.PHASEII ---
per md torrez pt is to restart plavix today.
== END 2021-06-29 13:37 | disposition home or self-care (01) ==
PROVIDERS: PCP Family Medicine; Visit Provider Internal Medicine Gastroenterology
PROC: 0DJD8ZZ Inspection of Lower Intestinal Tract, Via Natural or Artificial Opening Endoscopic (ICD-10-PCS; CPT 45378; principal; 2021-06-29 13:00)
DX: Z12.11 Encounter for screening for malignant neoplasm of colon (principal); K57.30 Diverticulosis of large intestine without perforation or abscess without bleeding; I25.10 Atherosclerotic heart disease of native coronary artery without angina pectoris; I11.9 Hypertensive heart disease without heart failure; E78.5 Hyperlipidemia, unspecified; F41.8 Other specified anxiety disorders; D64.9 Anemia, unspecified; N40.0 Benign prostatic hyperplasia without lower urinary tract symptoms; K21.9 Gastro-esophageal reflux disease without esophagitis; F12.90 Cannabis use, unspecified, uncomplicated; Z79.82 Long term (current) use of aspirin; Z79.02 Long term (current) use of antithrombotics/antiplatelets; Z86.73 Personal history of transient ischemic attack (TIA), and cerebral infarction without residual deficits
CPT/HCPCS: G0121; J2405; J2704; J7120

== ENCOUNTER 2022-05-30 11:29 | Outpatient (CLI) | payer OTHER, SELFPAY ==
--- NOTE | ~2022-05-30 | XR_ITS ---
XR lumbar spine 2-3V DATE: 05/30/2022 12:17 INDICATION: Generalized low back pain. Scoliosis. TECHNIQUE: AP, lateral and coned lateral lumbosacral views COMPARISON: 07/15/2015 MR FINDINGS: There is mild levoscoliosis of the lower thoracic and lumbar spine. There is very severe degenerative disc disease at L1-2, L2-3 and L3-4 with severe loss of interspace height, degenerative spurring, eburnation, vacuum phenomenon. Associated with the degenerative disc disease at L2-3 and L3-4 is some retrolisthesis. Status post ri ght posterior surgical fusion with Steffee plate and screws at L4-S1. Prominent loss of disc space at L5-S1. No fracture or bone destruction is detected. The pedicles appear intact. The sacroiliac joints are normal. There is extensive calcification of the abdominal aorta and common iliac arteries. IMPRESSION: Multilevel severe degenerative disc disease, especially L1-2, L2-3 and L3-4 and L5-S1; as sociated retrolisthesis at L2-3 and L3-4 Status post right posterior surgical fusion at L4-S1 Reviewed, dictated and finalized at location B. IMPRESSION: Multilevel severe degenerative disc disease, especially L1-2, L2-3 and L3-4 and L5-S1; associated retrolisthesis at L2-3 and L3-4 Status post right posterior surgical fusion at L4-S1
--- NOTE | ~2022-05-30 | XR_ITS ---
XR shoulder LT min 2V DATE: 05/30/2022 12:16 INDICATION: Generalized left shoulder pain. No known injury. TECHNIQUE: 4 views COMPARISON: None FINDINGS: Degenerative changes of the cervical and thoracic spine. Osteopenia. There is inferior spurring at the lateral articular margin of the clavicle at the acromioclavicular j oint. No fracture, dislocation, periosteal reaction or bone destruction or significant abnormal calcificati on of the left shoulder is noted. IMPRESSION: Osteopenia Degenerative spurring at left acromioclavicular joint Degenerative changes of cervical and thoracic spine Reviewed, dictated and finalized at location B.
--- NOTE | ~2022-05-30 | XR_ITS ---
XR knee RT 3V 05/30/2022 12:17 Indication: Right knee pain Procedure: 3 views right knee Comparison: No prior studies for comparison. Findings: There is mild osteoarthritis of the right knee. No fracture, subluxation or dislocation. No significant joint effusion. There is atherosclerosis. Impression: 1: Mild tricompartment osteoarthritis of the right knee. Reviewed, dictated and finalized at location A. Impression: 1: Mild tricompartment osteoarthritis of the right knee.
--- NOTE | ~2022-05-30 | XR_ITS ---
XR shoulder RT min 2V 05/30/2022 12:18 Indication: Right shoulder pain Procedure: 4 views right shoulder Comparison: No prior studies for comparison. Findings: There is mild polyarticular osteoarthritis. Osteopenia. No acute fracture or traumatic catarino lignment. There is atherosclerosis of the axillary vessels. Impression: 1: Mild polyarticular osteoarthritis of the right shoulder. Reviewed, dictated and finalized at location A. Impression: 1: Mild polyarticular osteoarthritis of the right shoulder.
--- NOTE | ~2022-05-30 | XR_ITS ---
XR knee LT 3V 05/30/2022 12:16 Indication: Left knee pain Procedure: 3 views left knee Comparison: No prior studies Findings: There is mild osteoarthritis of the left knee. There are loose bodies posterior to the join t space. There is atherosclerosis. No fracture or traumatic malalignment. There is an unfused tibial tuberosity. No significant joint effusion. Impression: 1: Mild osteoarthritis of the left knee. Reviewed, dictated and finalized at location A. Impression: 1: Mild osteoarthritis of the left knee.
--- NOTE | ~2022-05-30 | XR_ITS ---
XR hip BI 2V w AP pelvis 05/30/2022 12:17 Indication: Low back and pelvic pain Procedure: AP pelvis and 2 views each hip Comparison: No prior studies for comparison. Findings: There is mild bilateral osteoarthritis of the hips. There are surgical changes consistent w ith laminectomy and partial fusion of the lumbosacral junction. Sacral foramen are symmetric. Pelvic rings are intact. Focal lytic or blastic lesions. No acute fracture or traumatic malalignment. Impression: 1: Mild bilateral symmetric osteoarthritis of the hips. Reviewed, dictated and finalized at location A. Impression: 1: Mild bilateral symmetric osteoarthritis of the hips.
--- NOTE | ~2022-05-30 | XR_ITS ---
EXAM: XR wrist LT w scaphoid, XR hand LT min 3V DATE: 05/30/2022 16:19 HISTORY: M79.642 - Pain in left hand . COMPARISON: 05/30/2022. FINDINGS: Decreased mineralization. No fracture or dislocation. No lytic or blastic lesion. Old ulna r styloid fracture. Chondrocalcinosis. Scapholunate widening, flattening and degenerative change of t he lunate, abnormal scapholunate angle, all findings that are seen with SLAC wrist. Likely prior rese ction of the trapezium. Severe degenerative change at the triscaphe joint and residual portions of th e trapeziometacarpal joint. Moderate degenerative change at the radiocarpal joint and DRUJ. Moderate degenerative change at the first through third MCP joints, with hooklike osteophytes. Mild degree of osteoarthritis in the interphalangeal joints of the fingers, worst at the second and third DIP joints . No erosion or periosteal change. Soft tissues within normal limits. 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 Reviewed, dictated and finalized at location K. IMPRESSION: Moderate and severe arthritic changes in the wrist and hand, detail ed above.
== END 2022-05-30 11:30 | disposition home or self-care (01) ==
PROVIDERS: PCP Family Medicine; Visit Provider Physician Assistant
DX: M16.0 Bilateral primary osteoarthritis of hip (principal); M19.032 Primary osteoarthritis, left wrist; M19.042 Primary osteoarthritis, left hand; M47.817 Spondylosis without myelopathy or radiculopathy, lumbosacral region; Z98.1 Arthrodesis status; M19.012 Primary osteoarthritis, left shoulder; M47.813 Spondylosis without myelopathy or radiculopathy, cervicothoracic region; M19.011 Primary osteoarthritis, right shoulder; M17.0 Bilateral primary osteoarthritis of knee
CPT/HCPCS: 72100; 73030; 73110; 73130; 73521; 73562

== ENCOUNTER 2023-02-20 12:22 | Outpatient (CLI) | payer OTHER, SELFPAY ==
--- NOTE | ~2023-02-20 | CT_ITS ---
EXAMINATION: CTA chest DATE: 02/21/2023 10:28 CDT INDICATION: Stricture of the artery TECHNIQUE: Computed tomographic angiography (CTA) of the chest was performed with 100 mL Omnipaque-35 0 intravenous contrast. The dose-length product was 608.37 mGy-cm. Maximum intensity projection 3D-re constructions of the aorta and other arteries were constructed by the technologist on a separate work station. Automated exposure control and iterative reconstruction technique were employed. COMPARISON: None. FINDINGS: There is atherosclerosis of the aorta and origins of the right and left common and left wang tebral arteries causing stenosis at these levels. There is moderate stenosis at the origin of the com mon carotid arteries as well as the left vertebral artery. There is stenosis at the origin of the lef t subclavian artery. There is stenosis at the origin of the right brachiocephalic artery. Heart size normal. No significant pleural or pericardial effusion. No evidence for aortic aneurysm or dissection . There are gallstones. There is a duodenal diverticulum. There are calcified granulomas in the lungs . There is right upper lobe scarring. There is mild emphysema. No endobronchial lesions. No pneumotho rax. No focal airspace consolidation. There are gallstones. There is severe lower cervical, thoracic and upper lumbar spondylosis. IMPRESSION: 1. Moderate atherosclerosis of the aorta with stenosis at the origin of the right brachiocephalic, co mmon carotid artery and left subclavian arteries. Reviewed, dictated and finalized at location [] IMPRESSION: 1. Moderate atherosclerosis of the aorta with stenosis at the origin of the rig ht brachiocephalic, common carotid artery and left subclavian arteries.
[2023-02-20 12:46] LABS: Estimated Glomerular Filt Rate 50
== END 2023-02-20 12:23 | disposition home or self-care (01) ==
PROVIDERS: PCP Family Medicine; Visit Provider Physician Assistant
DX: I77.1 Stricture of artery (principal)
CPT/HCPCS: 71275; Q9967

== ENCOUNTER 2023-11-19 11:29 | Inpatient (IN) | payer OTHER, SELFPAY ==
[2023-11-19] VITALS (17 sets, daily range): BP systolic 89–127; BP diastolic 42–68; PULSE 75–103; RESP 15–22; TEMP 36.6–36.8; O2SAT 88–100; BMI 25.5
--- NOTE | ~2023-11-19 | CT_ITS ---
EXAMINATION: CTA chest PE protocol DATE: 11/20/2023 21:46 INDICATION: Hypoxia elevated D-dimer TECHNIQUE: Computed tomography angiography (CTA) of the chest was performed with 100 mL Omnipaque-350 intravenous contrast timed to evaluate the pulmonary arteries. Coronal maximum intensity projection 3D-reconstructions were created by the technologist. The dose-length product (DLP) was 522.91 mGy-cm. Automated exposure control and iterative reconstruction technique were employed. COMPARISON: CTA chest 02/20/2023; x-ray chest 11/19/2023. FINDINGS: Lung parenchyma and airways: 11 mm fluid density nodule in the right upper lobe, likely fluid-filled pneumatocele, suggestion of rim enhancement. Scattered peripheral groundglass opacities primarily in the left upper lobe. Bronchovascular consolidation primarily in the right lower lobe, also noted to a lesser extent in the bilateral upper lobes. Areas of crazy paving surrounding the right lower lobe c onsolidation. Somewhat rounded appearing area of consolidation in the dependent left lower lobe. Pleura: Small bilateral pleural fluid collections. Thoracic inlet, axillae and chest wall: Unremarkable. Thoracic aorta: No significant dilation. No dissection. Arch calcifications. Mediastinum: Moderate hiatal hernia. Enlarged right hilar and mediastinal lymph nodes. Heart and pericardium: Normal. Coronary artery calcifications: Moderate. Upper abdomen: Cholelithiasis. Duodenal diverticulum. Bones: No acute osseous finding. Pulmonary arteries: Study quality: Adequate. No pulmonary emboli detected. IMPRESSION: No CT evidence of acute pulmonary embolus. Multifocal bronchopneumonia, most severe in the right lower lobe. Fluid-filled, possibly infected right upper lobe pneumatocele. Dependent left lower lobe consolidation may represent an additional site of infection or rounded atel ectasis. Small bilateral pleural effusions. Right hilar and mediastinal lymphadenopathy. Reviewed, dictated and finalized at location K. IMPRESSION: No CT evidence of acute pulmonary embolus. Multifocal bronchopneumonia, most severe in the right lower lobe. Fluid-filled, possibly infected right upper lobe pneumatocele. Dependent left lower lobe consolidation may represent an additional site of inf ection or rounded atelectasis. Small bilateral pleural effusions. Right hilar and mediastinal lymphadenopathy.
--- NOTE | ~2023-11-19 | XR_ITS ---
EXAMINATION: XR chest 1V portable DATE: 11/24/2023 09:05 INDICATION: Pneumonia. Influenza. TECHNIQUE: frontal view of the chest was obtained. COMPARISON: Chest radiograph dated 11/19/[address] dated 11/20/2023 FINDINGS: Small right pleural effusion both at the lung base and loculated over the apex. Persistent patchy air space opacities throughout the right lung as well as more focally at both the left upper and left low er lung zones consistent with multifocal pneumonia. No pneumothorax or left-sided pleural effusion. H eart size is normal. Severe thoracic spondylosis. IMPRESSION: 1. Persistent patchy airspace opacity throughout the right lung and more focally in the left upper an d left lower lung zones consistent with multifocal pneumonia. 2. Small right pleural effusion. Reviewed, dictated and finalized at location A. IMPRESSION: 1. Persistent patchy airspace opacity throughout the right lung and more focall y in the left upper and left lower lung zones consistent with multifocal pneumo shane. 2. Small right pleural effusion.
--- NOTE | ~2023-11-19 | XR_ITS ---
EXAMINATION: XR chest 2V DATE: 11/19/2023 12:16 INDICATION: Shortness of breath TECHNIQUE: frontal and lateral views of the chest were obtained. COMPARISON: Chest radiograph dated 11/29/2020 FINDINGS: There are patchy airspace opacities throughout the dependent aspect of the right lung from the upper to the lower lung zones which are concerning for pneumonia. Left lung remains clear. No pleural effus ion or pneumothorax. Cardiomediastinal silhouette remains normal. There are bridging osteophytes at m ultiple levels consistent with diffuse idiopathic skeletal hyperostosis (DISH). IMPRESSION: 1. Unilateral patchy airspace opacities throughout the dependent right lung which is concerning for p neumonia. Reviewed, dictated and finalized at location B. IMPRESSION: 1. Unilateral patchy airspace opacities throughout the dependent right lung whi ch is concerning for pneumonia.
--- NOTE | 2023-11-19 11:34 | ECG_ITS ---
Measurements Intervals [place] Rate: 82 P: 44 AL: 144 QRS: -2 QRSD: 105 T: 44 QT: 321 QTc: 376 Interpretive Statements SINUS RHYTHM BASELINE ARTIFACT- I, II, III, AVR, AVLL, AVF BORDERLINE ECG COMPARED TO ECG 11/29/2020 17:10:35 NO SIGNIFICANT CHANGES Electronically Signed On 11-19-2023 11:46:41 CDT by Robert Jensen D.O.
[2023-11-19 11:51] LABS: Basophils Absolute Auto 0.1 K/mm3 (0.0-0.1); Basophils Percent Auto 0.3 % (0.2-1.2); Eosinophils Absolute Auto 0.2 K/mm3 (0-0.3); Eosinophils Percent Auto 1.2 % (0-4.4); Hematocrit 27.8 % (42.0-52.0); Hemoglobin 8.9 g/dL (14.0-18.0); Immature Granulocyte Absolute 0.47 K/mm3 (0.00-0.031); Immature Granulocyte Percent A 2.9 % (0-0.5); Lymphocytes Absolute Auto 1.25 K/mm3 (0.9-3.2); Lymphocytes Percent Auto 7.8 % (18.3-44.2); Mean Corpuscular Volume 90.6 fl (80-100); Monocytes Absolute Auto 0.7 K/mm3 (0.1-0.6); Monocytes Percent Auto 4.2 % (2.6-8.5); Neutrophils Absolute Auto 13.5 K/mm3 (1.3-6.7); Neutrophils Percent Auto 83.6 % (45.5-73.1); Platelet Count Result 431 k/mm3 (150-375); Red Blood Count 3.07 M/mm3 (4.6-6.20); Red Cell Distribution Width 15.9 % (11.5-14.5); White Blood Count 16.1 K/mm3 (4.5-10.0)
[2023-11-19 12:02] LABS: Alanine Aminotransferase 22 U/L (6-50); Albumin Level 2.8 g/dL (3.5-5.1); Alkaline Phosphatase 125 U/L (38-126); Anion Gap 6 mmol/L (8-16); Aspartate Amino Transferase 36 U/L (17-59); Bilirubin,Total 0.7 mg/dL (0.2-1.3); Blood Urea Nitrogen 31 mg/dL (9-20); Calcium 8.1 mg/dL (8.4-10.2); Carbon Dioxide 22 mmol/L (22-30); Chloride 111 mmol/L (98-107); Estimated CRCL calculation 57 ml/min; Estimated Glomerular Filt Rate > 60; Glucose 163 mg/dL (65-110); Potassium 2.9 mmol/L (3.4-5.0); Sodium 139 mmol/L (137-145)
[2023-11-19] MEDS: SODIUM CHLORIDE 0.9% IV 2,300 ML/1,000 ML BAG 999 ML IV CONT ×3 (12:03→13:52)
[2023-11-19 12:11] LABS: Lactic Acid Reflex 2.6 mmol/L (0.7-2.0)
[2023-11-19 12:12] LABS: INR 1.2; Prothrombin Time 15.5 Seconds (11.1-14.7)
[2023-11-19 12:13] LABS: Partial Thromboplastin Time 37.9 SECONDS (22.3-36.8)
[2023-11-19] MEDS: IPRATROPIUM 0.5 MG/ALBUTEROL SULFATE 2.5 MG AMPUL.NEB 3 ML INHALATION ×2 (12:13→19:41)
[2023-11-19 12:27] LABS: Influenza A QL RT-PCR Negative (Negative); Influenza B QL RT-PCR Positive (Negative); RSV RNA, RT-PCR Negative (Negative); SARS-CoV-2 RNA PCR Negative (Negative)
--- NOTE | 2023-11-19 13:08 | ED.WEAKNESS ---
HPI - Weakness General Chief complaint: Weakness Stated complaint: WEAKNESS Time Seen by Provider: 11/19/23 11:43 History of Present Illness HPI Narrative: patient is a 73-year-old male who presents ER with weakness. Reports he has been coughing and having difficulty breathing over last week and it significantly worsened today. No chest pain. Patient has no history of COPD. He does have heart disease and is on Flomax. Denies any chest pain. No loss of consciousness. Related Data Home Medications Medication Instructions Recorded Confirmed aspirin 81 mg tablet,delayed 81 mg PO DAILY 10/21/19 01/30/23 release Allergies Allergy/AdvReac Type Severity Reaction Status Date / Time amitriptyline AdvReac Mild Confusion Verified 03/14/23 15:01 Review of Systems Review of Systems: All systems reviewed & are unremarkable except as noted in HPI and below Constitutional: Constitutional: Reports fatigue, Reports fever(s) and Reports weakness ENT: Denies nasal congestion and Denies sore throat Cardiovascular: Cardiovascular: Reports no additional cardiovascular complaints Respiratory: Respiratory: Reports cough, Reports dyspnea and Reports wheezing Gastrointestinal: Gastrointestinal: Reports no additional gastrointestinal complaints Genitourinary: Genitourinary: Reports no additional male genitourinary complaints Musculoskeletal: Musculoskeletal: Reports no additional musculoskeletal complaints [facility] Past Medical History Medical History (Updated 11/19/23 @ 18:01 by Len Nair MD) Anemia Anxiety Benign prostatic hyperplasia Carotid artery disease Status post right carotid endarterectomy. Left carotid bulb moderate plaque and 45% stenosis on CTA of the head and neck dated 11/29/2020. Cerebrovascular accident (07/2016) Attributed to carotid artery disease. Status post right carotid endarterectomy. Depression Diastolic dysfunction Echocardiogram in July 2016 showed normal left ventricular systolic function, mild LVH, and grade 1 diastolic dysfunction with an ejection fraction of 60%. Gastroesophageal reflux disease History of kidney stones History of staph infection (2009) Staph pneumonia, possible empyema. Hyperlipidemia Hypertension Peripheral vascular disease Spinal stenosis Surgical History Surgical History History of arthroscopy of right knee History of bilateral carpal tunnel release History of right-sided carotid endarterectomy History of spinal surgery Family History Family History Mother Hypertension Social History Social History (Updated 11/19/23 @ 14:59 by Marietta Rosa PA-C) Social History: Surrogate decision maker: Code status: Full code. Smoking status: Never smoker Second hand tobacco smoke exposure: No Alcohol intake: never Substance use: current Substance use type: marijuana Living arrangements: with family Additional living arrangements comments: Lives in [place]. One son lives at home with him. 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 Spiritual care concerns: No Exam Narrative: GENERAL: Ill-appearing, well-nourished, and in no acute distress. HEAD: Normocephalic, atraumatic. EYES: PERRL and EOMI. ENT: Mucous membranes moist. NECK: Supple. CHEST: Coarse rales next prior wheezing blaterally.. No respiratory distress. HEART: Regular rate and rhythm. Normal peripheral pulses. ABDOMEN: Soft, nontender, nondistended. EXTREMITIES: Normal range of motion. No edema. SKIN: Warm, dry, no rash. NEURO:Alert and oriented x3. PSYCH: Normal mood and affect. Course Course Emergency Course: Patient fluid responsive to 30 milliliter/kilogram bolus. He is on 4 L Of oxygen which is new for him. broad-spectrum antibiotics started. Admit to hospitalist service. Vital Signs Vital signs: Vital Signs Temperature 98.3 F 11/19/23 11:27 Pulse Rate 88 11/19/23 11:27 Respiratory Rate 15 11/19/23 11:27 Blood Pressure 89/62 L 11/19/23 11:27 Pulse Oximetry 88 L 11/19/23 11:27 Oxygen Delivery Room Air 11/19/23 11:27 Temperature 97.9 F 11/19/23 16:10 Pulse Rate 76 11/19/23 16:10 Respiratory Rate 22 H 11/19/23 16:10 Blood Pressure 117/43 L 11/19/23 16:11 Pulse Oximetry 97 11/19/23 16:10 Oxygen Delivery Nasal Cannula 11/19/23 11:42 Oxygen Flow Rate 4 11/19/23 11:42 MDM - Weakness Lab Data 11/19/23 11:44 11/19/23 15:08 Labs: Lab Results 11/19/23 11/19/23 11/19/23 Range/Units 11:44 11:45 11:57 WBC 16.1 H (4.5-10.0) K/mm3 RBC 3.07 L (4.6-6.20) M/mm3 Hgb 8.9 L D (14.0-18.0) g/dL Hct 27.8 L (42.0-52.0) % MCV 90.6 (80-100) fl MCH 29.0 (26-34) pg MCHC 32.0 (32-36) g/dl RDW 15.9 H (11.5-14.5) % Plt Count 431 H D (150-375) k/mm3 MPV 11.0 H (7.4-10.4) fl Immature Gran % (Auto) 2.9 H (0-0.5) % Neut % (Auto) 83.6 H (45.5-73.1) % Lymph % (Auto) 7.8 L (18.3-44.2) % [place] % (Auto) 4.2 (2.6-8.5) % Eos % (Auto) 1.2 (0-4.4) % Baso % (Auto) 0.3 (0.2-1.2) % Lymph # (Auto) 1.25 (0.9-3.2) K/mm3 [place] # (Auto) 0.7 H (0.1-0.6) K/mm3 Eos # (Auto) 0.2 (0-0.3) K/mm3 Baso # (Auto) 0.1 (0.0-0.1) K/mm3 Abs Immat Gran (auto) 0.47 H (0.00-0.031) K/mm3 Absolute Neuts (auto) 13.5 H (1.3-6.7) K/mm3 Absolute Nucleated RBC 0.0 (0.0-0.012) K/mm3 Nucleated RBC % 0.0 (0.0-0.2) % PT 15.5 H (11.1-14.7) Seconds INR 1.2 APTT 37.9 H (22.3-36.8) SECONDS Sodium 139 (137-145) mmol/L Potassium 2.9 L (3.4-5.0) mmol/L Chloride 111 H (98-107) mmol/L Carbon Dioxide 22 (22-30) mmol/L Anion Gap 6 L (8-16) mmol/L BUN 31 H D (9-20) mg/dL Creatinine 1.10 (0.7-1.3) mg/dL Estim Creat Clear Calc 57 ml/min Estimated GFR > 60 (59 - ) Glucose 163 H (65-110) mg/dL Lactic Acid 2.6 H (0.7-2.0) mmol/L Calcium 8.1 L (8.4-10.2) mg/dL Total Bilirubin 0.7 (0.2-1.3) mg/dL AST 36 (17-59) U/L ALT 22 (6-50) U/L Alkaline Phosphatase 125 (38-126) U/L Total Protein 7.0 (6.3-8.2) g/dL Albumin 2.8 L (3.5-5.1) g/dL Influenza A (RT-PCR) Negative (Negative) Influenza B (RT-PCR) Positive A (Negative) RSV (RT-PCR) Negative (Negative) SARS-CoV-2 RNA (RT-PCR) Negative (Negative) Imaging Data Radiologist's impression: ITS Impressions Chest X-Ray 11/19/23 12:19 IMPRESSION: 1. Unilateral patchy airspace opacities throughout the dependent right lung which is concerning for pneumonia. ECG Data EKG #1: ECG completion date: 11/19/23 ECG completion time: 11:35 EKG Interpretation: normal rate (82), sinus rhythm, no ST changes, normal QRS, normal QT and NL axis Critical Care Time Critical Care Time Critical Care Time: Yes Total Critical Care Time: 35 Discharge Plan Discharge Clinical Impression: Pneumonia, Influenza B, Sepsis, Hypoxia Patient Disposition: Still a Patient Condition: Stable
[2023-11-19] MEDS: AZITHROMYCIN 500 MG/NS 250 ML 500 MG/250 ML BAG 250 MG IVPB (13:35)
--- NOTE | 2023-11-19 13:38 | PC.NURSE ---
2340 mL of NS infused.
[2023-11-19] MEDS: SODIUM CHLORIDE 0.9% IV 1,000 ML 125 ML IV CONT (13:49)
--- NOTE | 2023-11-19 14:20 | PM.IMHP ---
H&P: HPI History of Present Illness Date/Time: 11/19/23 14:20 Chief Complaint: Weakness. Narrative: This is a 73-year-old male with history of stroke, peripheral vascular disease status post right carotid endarterectomy, peripheral arterial disease, hypertension, and hyperlipidemia who presented to the emergency department earlier today via EMS from [facility] for evaluation of weakness. He has not felt well for 10 days with symptoms to include sinus congestion, a nonproductive cough, sinus congestion, sore throat, poor appetite, and loose stools. He has been feeling weak and fatigued and reports mild dizziness with position changes. He felt good enough today however to go to the [facility]. When he stepped out the door into the cold air however he reports that he developed sudden, severe shortness of breath associated with profound weakness to the point where he dropped down to the ground. He reports feeling a burning sensation in his right lung and sharp pain throughout his ribs with deep inspiration. EMS was summoned and on their arrival he was in a tripoding position with an SpO2 in the low 80s and a blood pressure of reportedly 61/27. He is unaware of fever and denies headache, neck ache, chest pain, palpitations, syncope, abdominal discomfort, bloating, belching, nausea, vomiting, lower extremity edema, and calf pain. He has not noticed any dark stools or bright red blood in the stools. At the time my evaluation he is feeling much better with IV fluids. In the ED: Initial blood pressure was 89/62 but has been over 100 systolic since receiving a 30 milligram/kilogram normal saline bolus. He has been afebrile since arrival. Labs were significant for WBC count of 16.1, hemoglobin 8.9, PT 15.5, INR 1.2, PTT 37.9, sodium 139, potassium 2.9, BUN 31, creatinine 1.10, lactic acid 2.6, calcium 8.1. He tested positive for influenza B. Chest x-ray showed unilateral patchy airspace opacities throughout the dependent right lung which is concerning for pneumonia. In addition to the normal saline bolus he received 40 mEq of potassium chloride and azithromycin and ceftriaxone for possible pneumonia and he is being admitted in this setting for closer monitoring and further treatment. Review of Systems Review of Systems: Twelve systems were reviewed and are negative except for as per HPI. [facility] Past Medical History Medical History (Updated 11/19/23 @ 20:47 by Marietta Rosa PA-C) Anemia Anxiety Benign prostatic hyperplasia Carotid artery disease Status post right carotid endarterectomy. Left carotid bulb moderate plaque and 45% stenosis on CTA of the head and neck dated 11/29/2020. Cerebrovascular accident (07/2016) Attributed to carotid artery disease. Status post right carotid endarterectomy. Depression Diastolic dysfunction Echocardiogram in July 2016 showed normal left ventricular systolic function, mild LVH, and grade 1 diastolic dysfunction with an ejection fraction of 60%. Gastroesophageal reflux disease History of kidney stones History of staph infection (2009) Staph pneumonia, possible empyema. Hyperlipidemia Hypertension Peripheral vascular disease Spinal stenosis Surgical History Surgical History History of arthroscopy of right knee History of bilateral carpal tunnel release History of right-sided carotid endarterectomy History of spinal surgery Family History Family History Mother Hypertension Social History Social History (Updated 11/19/23 @ 20:45 by Marietta Rosa PA-C) Social History: Surrogate decision maker: Juliette Javed, daughter. Code status: Full code. Smoking status: Never smoker Second hand tobacco smoke exposure: No Alcohol intake: never Substance use: never Substance use type: marijuana Do You Feel Safe in your Home?: Yes Lack of Transportation: No Lack of Food: Never True Current Housing: I Have Housing Concerned About Future Housing: No Difficulty Paying Gas/Electric Bills: No Difficulty Paying for Meds: No Currently Unemployed: No Education: Grade School Difficulty w/ Childcare or Family Care: No Living arrangements: with family Additional living arrangements comments: Lives in [place]. One son lives at home with him. 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 Spiritual care concerns: No Meds Home Medications and Allergies Home Medications Medication Instructions Recorded Confirmed Type aspirin 81 mg tablet,delayed 81 mg PO DAILY 10/21/19 11/19/23 History release atorvastatin 40 mg tablet (Lipitor) 40 mg PO DAILY 30 days #90 tabs 03/01/23 11/19/23 Rx pantoprazole 40 mg tablet,delayed 40 mg PO QAM gastroesophageal 03/01/23 11/19/23 Rx release reflux disease 30 days #90 tabs finasteride 5 mg tablet 5 mg PO DAILY #90 tabs 03/26/23 11/19/23 Rx clopidogrel 75 mg tablet 75 mg PO QAM #90 tabs 08/13/23 11/19/23 Rx diclofenac sodium 75 mg See Rx Instructions .Route 08/20/23 11/19/23 Rx tablet,delayed release .COMPLEX #60 tabs tamsulosin 0.4 mg capsule See Rx Instructions .Route 09/14/23 11/19/23 Rx .COMPLEX #90 caps amlodipine 10 mg tablet 10 mg PO DAILY #90 tabs 10/18/23 11/19/23 Rx bupropion HCl 150 mg 24 hr tablet, 150 mg PO QAM #90 tabs 11/02/23 11/19/23 Rx extended release duloxetine 60 mg capsule,delayed See Rx Instructions .Route 11/02/23 11/19/23 Rx release .COMPLEX #90 caps Allergies Allergy/AdvReac Type Severity Reaction Status Date / Time amitriptyline AdvReac Mild Confusion Verified 03/14/23 15:01 Vital Signs Vital Signs - 24 hr 11/19/23 11:27 11/19/23 11:42 11/19/23 12:14 Temperature 98.3 F Pulse Rate 88 83 Respiratory Rate 15 20 Blood Pressure 89/62 L Pulse Oximetry 88 L 100 Oxygen Delivery Room Air Nasal Cannula Oxygen Flow Rate 4 11/19/23 12:21 11/19/23 12:43 11/19/23 13:21 Temperature Pulse Rate 88 79 Respiratory Rate 20 16 Blood Pressure 110/68 127/65 Pulse Oximetry 100 Oxygen Delivery Oxygen Flow Rate Exam Narrative: General:?Chronically ill-appearing male sitting in a chair at the side of the bed in no acute distress. Weight: 83.2 kg. BMI: 25.6. HEENT:??Wearing glasses.? PERRL, EOMI.? Sclerae anicteric. Tacky mucous membranes. Neck:??Supple. Bilateral carotid bruits.? Right endarterectomy scar. Respiratory:?Lungs are clear to auscultation bilaterally. Cardiovascular:??Regular rate and rhythm with S1-S2.? 1/6 systolic murmur at upper sternal border. Gastrointestinal:??Abdomen is soft, nontender, and nondistended with positive bowel sounds. Skin:??Warm and dry.?Generalized pallor. Extremities:??No cyanosis, clubbing, or significant edema. Radial and pedal pulses intact. Neurological:??Alert and oriented x4.? Cranial nerves 2-12 are grossly intact. Generalized weakness without focal findings. Psychiatric:??Pleasant and cooperative appropriate mood and affect. H&P: Results Labs Labs: Short CBC 11/19/23 Range/Units 11:44 WBC 16.1 H (4.5-10.0) K/mm3 Hgb 8.9 L D (14.0-18.0) g/dL Hct 27.8 L (42.0-52.0) % Plt Count 431 H D (150-375) k/mm3 BMP 11/19/23 11:45 Sodium 139 Potassium 2.9 L Chloride 111 H Carbon Dioxide 22 BUN 31 H D Creatinine 1.10 Glucose 163 H Calcium 8.1 L Liver Function 11/19/23 Range/Units 11:45 Total Bilirubin 0.7 (0.2-1.3) mg/dL AST 36 (17-59) U/L ALT 22 (6-50) U/L Alkaline Phosphatase 125 (38-126) U/L Albumin 2.8 L (3.5-5.1) g/dL Imaging Chest X-Ray 11/19/23 12:19 IMPRESSION: 1. Unilateral patchy airspace opacities throughout the dependent right lung which is concerning for pneumonia. Assessment and Plan Assessment and plan (1) Hypoxia: Code(s): R09.02 - Hypoxemia Status: Acute (2) Pneumonia: Code(s): J18.9 - Pneumonia, unspecified organism Status: Acute (3) Influenza B: Code(s): J10.1 - Influenza due to other identified influenza virus with other respiratory manifestations Status: Acute (4) Hypokalemia: Code(s): E87.6 - Hypokalemia Status: Acute (5) Normocytic anemia: Code(s): D64.9 - Anemia, unspecified Status: Acute (6) Peripheral vascular disease: Code(s): I73.9 - Peripheral vascular disease, unspecified Status: Acute (7) Hypertension: Qualifiers: Hypertension type: essential hypertension Qualified Code(s): I10 - Essential (primary) hypertension Code(s): I10 - Essential (primary) hypertension Status: Acute Plan The patient presented to the emergency department for evaluation of weakness as detailed in HPI. Labs, imaging, EKG, and all reports were personally reviewed. He tested positive for influenza B and has been started on Tamiflu. Chest x-ray also shows findings of possible right-sided pneumonia and he has been started on ceftriaxone and azithromycin as well. His SpO2 was in the 80s on EMS arrival and given reports of pleuritic pain, D-dimer has been ordered. If that is elevated he will need a chest CT to rule out DVT. Pleuritic pain could be related to the pneumonia however. Oxygen will be weaned as tolerated. Potassium has been replaced and will be monitored. He looks a bit dry on exam and will be hydrated overnight. Blood pressures were initially very low but have responded to IV fluids. He does have peripheral vascular disease and left-sided subclavian steal syndrome thus blood pressure should be monitored on the right arm. Hemoglobin is lower than what he typically runs and iron studies as well as B12 and folate have been ordered for further evaluation. Check stool for occult blood as he is on dual anti-platelet therapy and diclofenac daily; clopidogrel and diclofenac have been placed on hold for now pending stool for occult blood. Continue aspirin with close monitoring. Medications will need to be readdressed as soon as possible. His other home medications will be reviewed and resumed as appropriate. Findings and treatment plan were discussed with the patient. Questions were solicited and answered to satisfaction. The patient's medical management will be taken over by the hospitalist team in a.m. Quality VTE Prophylaxis VTE prophylaxis: mechanical ordered If No VTE Prophylaxis Answer both mechanical and pharmacologic: Reason no pharmacologic proph: medical contraindication (Patient on dual anti-platelet therapy, pharmacologic prophylaxis would put him at increased risk for bleeding.)
--- NOTE | 2023-11-19 15:00 | ADMGEN ---
This patient, Reese Lynch Jr., was admitted to IMU Room 231-01. Patient/family oriented to hospital policies and general routines including ID bracelet, bed and alarms, visiting hours, pain management, procedures, bathroom and other care routines, personal items, smoking policy, room service/diet, and visiting hours. Information on how to activate the Rapid Response Team has been discussed. Patient/Family are encouraged to report perceived risks to care and to ask questions if they do not understand what they are told or what they should do.
[2023-11-19 15:01] LABS: Reflex Lactic Acid Yes or No Add Lactic
[2023-11-19 15:42] LABS: Lactic Acid 2.4 mmol/L (0.7-2.0)
[2023-11-19] MEDS: POTASSIUM CHLORIDE 20 MEQ PACKET (FOR LIQUID) 40 MEQ PO (16:23)
[2023-11-19 17:22] LABS: Iron 50 ug/dL (49-181)
[2023-11-19 17:31] LABS: Percent Iron Saturation 28 % (20-50); TOTAL IRON BINDING CAPACITY 179 ug/dL (265-497)
[2023-11-19 17:33] LABS: Anion Gap 4 mmol/L (8-16); Blood Urea Nitrogen 26 mg/dL (9-20); Calcium 7.3 mg/dL (8.4-10.2); Carbon Dioxide 22 mmol/L (22-30); Chloride 115 mmol/L (98-107); Estimated CRCL calculation 69 ml/min; Estimated Glomerular Filt Rate > 60; Glucose 100 mg/dL (65-110); Magnesium 2.5 mg/dL (1.6-2.3); Potassium 3.3 mmol/L (3.4-5.0); Sodium 141 mmol/L (137-145)
[2023-11-19 17:43] LABS: Procalcitonin 0.4 ng/mL
[2023-11-19 18:46] LABS: Folic Acid 4.1 ng/mL (2.76->20); Vitamin B12 > 1000.0 pg/mL (239-931)
[2023-11-19] MEDS: POTASSIUM CHLORIDE 20 MEQ ER TABLET PO (19:36)
[2023-11-19] MEDS: LACTATED RINGERS 1,000 ML 100 ML IV CONT (20:47)
[2023-11-19] MEDS: OSELTAMIVIR PHOSPHATE 75 MG CAPSULE PO (20:47)
[2023-11-19 21:10] LABS: Hematocrit 26.2 % (42.0-52.0); Hemoglobin 8.1 g/dL (14.0-18.0)
[2023-11-19 21:24] LABS: D Dimer 3.06 ug/mL (<0.48)
[2023-11-20] VITALS (24 sets, daily range): BP systolic 85–154; BP diastolic 48–80; PULSE 66–110; RESP 16–28; TEMP 36.2–36.6; O2SAT 92–100
[2023-11-20] MEDS: IPRATROPIUM 0.5 MG/ALBUTEROL SULFATE 2.5 MG AMPUL.NEB 3 ML INHALATION ×4 (02:00→19:38)
[2023-11-20 04:37] LABS: Hematocrit 24.4 % (42.0-52.0); Hemoglobin 7.6 g/dL (14.0-18.0); Mean Corpuscular HGB Conc 31.1 g/dl (32-36); Mean Corpuscular Hemoglobin 28.8 pg (26-34); Mean Corpuscular Volume 92.4 fl (80-100); Mean Platelet Volume 10.8 fl (7.4-10.4); Platelet Count Result 409 k/mm3 (150-375); Red Blood Count 2.64 M/mm3 (4.6-6.20); Red Cell Distribution Width 15.9 % (11.5-14.5); White Blood Count 11.8 K/mm3 (4.5-10.0)
[2023-11-20 04:40] LABS: Anion Gap 2 mmol/L (8-16); Blood Urea Nitrogen 19 mg/dL (9-20); Calcium 7.7 mg/dL (8.4-10.2); Carbon Dioxide 22 mmol/L (22-30); Chloride 113 mmol/L (98-107); Estimated CRCL calculation 69 ml/min; Estimated Glomerular Filt Rate > 60; Glucose 137 mg/dL (65-110); Magnesium 2.4 mg/dL (1.6-2.3); Potassium 3.1 mmol/L (3.4-5.0); Sodium 137 mmol/L (137-145)
[2023-11-20 05:44] LABS: IFOB Positive Control Positive; Immunochemical Fecal Occult Bl Negative (N)
[2023-11-20] MEDS: ATORVASTATIN 40 MG TABLET PO (08:58)
[2023-11-20] MEDS: FINASTERIDE 5 MG TABLET PO (08:58)
[2023-11-20] MEDS: PANTOPRAZOLE 40 MG TABLET PO (08:58)
[2023-11-20] MEDS: TAMSULOSIN HCL 0.4 MG CAPSULE BY MOUTH (08:58)
[2023-11-20] MEDS: DULoxetine HCL 60 MG CAPSULE.DR BY MOUTH (08:58)
[2023-11-20] MEDS: buPROPion HCL XL (24 HR) 150 MG TABCR PO (08:58)
[2023-11-20] MEDS: OSELTAMIVIR PHOSPHATE 75 MG CAPSULE PO ×2 (08:58→21:23)
[2023-11-20] MEDS: AZITHROMYCIN 500 MG/NS 250 ML 500 MG/250 ML BAG 250 MG IVPB (08:59)
--- NOTE | 2023-11-20 13:57 | P.PNIM_ITS ---
Progress Note: A&P Assessment and Plan (1) Hypoxia: Code(s): R09.02 - Hypoxemia Status: Acute (2) Pneumonia: Code(s): J18.9 - Pneumonia, unspecified organism Status: Acute (3) Influenza B: Code(s): J10.1 - Influenza due to other identified influenza virus with other respiratory manifestations Status: Acute (4) Hypokalemia: Code(s): E87.6 - Hypokalemia Status: Acute (5) Normocytic anemia: Code(s): D64.9 - Anemia, unspecified Status: Acute (6) Peripheral vascular disease: Code(s): I73.9 - Peripheral vascular disease, unspecified Status: Acute (7) Hypertension: Qualifiers: Hypertension type: essential hypertension Qualified Code(s): I10 - Essential (primary) hypertension Code(s): I10 - Essential (primary) hypertension Status: Acute Plan This is the 73-year-old male who presented to the emergency department for evaluation of weakness. He has a history of stroke peripheral vascular disease status post right carotid endarterectomy, peripheral artery disease, hypertension and hyperlipidemia. He has not felt well for past 10 days with symptoms that includes sinus congestion nonproductive cough sore throat poor appetite and loose stools. He has been feeling weak and fatigued and mild dizziness with position changes. He felt good enough to go to [facility] on 11/19/2023. When he stepped out of the door into the cold air however he felt sudden shortness of breath which is severe and associated with profound weakness to the point where he dropped down to the ground. He had a burning sensation in his right lung and sharp pain throughout his ribs with deep inspiration. EMS was called and when they arrived he was not tripoding position with the SpO2 in low 80s and blood pressure of 61/27. No fever. In the ED is initial blood pressure was 80 9 hour 62 and received IV fluids. Afebrile on arrival WBC count of 16.1 hemoglobin 8.9 INR 1.2 lactate was mildly elevated at 2.6 creatinine 1.1. He tested positive for influenza B. Chest x-ray showed on unilateral patchy airspace opacities throughout the dependent right lung suggestive of pneumonia. Potassium was low at 2.9 received potassium supplementation. He has been started on IV antibiotics with ceftriaxone and azithromycin. Influenza B tested positive. And has been started on Tamiflu. Hypoxia as been stable on oxygenation via nasal cannula. Anemia acute on chronic with no signs of blood loss. However is hemoglobin level was back from 2021. FOBT came back negative. he is on dual antiplatelet therapy and also NSAIDs. D-dimer came back elevated at 3.06. Will further evaluate with CTA. Leukocytosis continues to improve on IV antibiotics. Anemia and thrombocytosis present. Replace potassium. Magnesium level is 2.4 ferritin is high B12 is high folate normal TSH is normal. Urine antigens pending. Start DVT prophylaxis with Lovenox Subjective Date/time seen: 11/20/23 13:57 Interval history: Feels better. Minimal cough with out any expectoration. Shortness of breath with exertion. Denies any leg swelling. Review of Systems Review of Systems: All systems reviewed & are unremarkable except as noted in HPI and below Exam Narrative: General:?Chronically ill-appearing male sitting in a chair at the side of the bed in no acute distress. HEENT:??Wearing glasses.? PERRL, EOMI.? Sclerae anicteric. Tacky mucous membranes. Neck:??Supple. Bilateral carotid bruits.? Right endarterectomy scar. Respiratory:?Lungs are clear to auscultation bilaterally. Cardiovascular:??Regular rate and rhythm with S1-S2.? 1/6 systolic murmur at upper sternal border. Gastrointestinal:??Abdomen is soft, nontender, and nondistended with positive bowel sounds. Skin:??Warm and dry.?Generalized pallor. Extremities:??No cyanosis, clubbing, or significant edema. Radial and pedal pulses intact. Neurological:??Alert and oriented x4.? Cranial nerves 2-12 are grossly intact. Generalized weakness without focal findings. Psychiatric:??Pleasant and cooperative appropriate mood and affect. Objective Data Vital Signs Vital Signs: Vital Signs - 24 hr 11/19/23 15:20 11/19/23 16:10 11/19/23 16:11 Temperature 98.3 F 97.9 F Pulse Rate 83 76 Respiratory Rate 22 H 22 H Blood Pressure 89/61 L 107/42 L 117/43 L Pulse Oximetry 100 97 Oxygen Delivery Oxygen Flow Rate Fraction of Inspired Oxygen 11/19/23 16:00 11/19/23 18:00 11/19/23 16:00 Temperature Pulse Rate 75 78 Respiratory Rate Blood Pressure Pulse Oximetry 94 Oxygen Delivery Nasal Cannula Oxygen Flow Rate 2 Fraction of Inspired Oxygen 11/19/23 19:41 11/19/23 19:41 11/19/23 19:50 Temperature Pulse Rate 82 82 85 Respiratory Rate 20 20 20 Blood Pressure Pulse Oximetry 97 Oxygen Delivery Nasal Cannula Oxygen Flow Rate 2 Fraction of Inspired Oxygen 28 11/19/23 20:00 11/19/23 20:24 11/19/23 20:00 Temperature 97.9 F Pulse Rate 85 103 H 100 Respiratory Rate 20 18 Blood Pressure 115/53 L Pulse Oximetry 97 97 Oxygen Delivery Nasal Cannula Oxygen Flow Rate 2 Fraction of Inspired Oxygen 11/19/23 22:00 11/19/23 23:19 11/20/23 00:00 Temperature 97.9 F Pulse Rate 86 85 85 Respiratory Rate 18 18 Blood Pressure 110/56 L Pulse Oximetry 97 97 Oxygen Delivery Nasal Cannula Oxygen Flow Rate 2 Fraction of Inspired Oxygen 11/20/23 02:00 11/20/23 02:07 11/20/23 00:00 Temperature Pulse Rate 84 87 78 Respiratory Rate 20 20 Blood Pressure Pulse Oximetry Oxygen Delivery Oxygen Flow Rate Fraction of Inspired Oxygen 11/20/23 02:00 11/20/23 03:58 11/20/23 04:00 Temperature 97.8 F Pulse Rate 87 81 81 Respiratory Rate 18 18 Blood Pressure 102/59 L Pulse Oximetry 94 94 Oxygen Delivery Nasal Cannula Oxygen Flow Rate 2 Fraction of Inspired Oxygen 11/20/23 04:00 11/20/23 05:59 11/20/23 07:55 Temperature Pulse Rate 80 75 86 Respiratory Rate 20 Blood Pressure Pulse Oximetry Oxygen Delivery Oxygen Flow Rate Fraction of Inspired Oxygen 11/20/23 08:00 11/20/23 08:20 11/20/23 08:00 Temperature 97.8 F 97.1 F L Pulse Rate 95 110 H Respiratory Rate 20 18 Blood Pressure 154/76 H 106/67 154/76 H Pulse Oximetry 100 100 Oxygen Delivery Oxygen Flow Rate Fraction of Inspired Oxygen 11/20/23 08:15 11/20/23 08:21 11/20/23 08:00 Temperature Pulse Rate 88 84 Respiratory Rate 20 Blood Pressure 120/80 Pulse Oximetry Oxygen Delivery Oxygen Flow Rate Fraction of Inspired Oxygen 11/20/23 08:00 11/20/23 10:00 11/20/23 12:00 Temperature 97.6 F Pulse Rate 97 90 Respiratory Rate 28 H Blood Pressure 92/56 L Pulse Oximetry 100 93 Oxygen Delivery Nasal Cannula Oxygen Flow Rate 2 Fraction of Inspired Oxygen 11/20/23 13:42 11/20/23 13:52 Temperature Pulse Rate 79 85 Respiratory Rate 20 20 Blood Pressure Pulse Oximetry Oxygen Delivery Oxygen Flow Rate Fraction of Inspired Oxygen Intake/Output Intake/Output: Intake & Output 11/17/23 11/18/23 11/19/23 11/20/23 22:59 23:59 23:59 23:59 Intake Total 3160 420 Output Total 950 150 Balance 2210 270 Meds/Results Medications: Active Medications Generic Name Dose Route Start Last Admin Trade Name Freq PRN Reason Stop Dose Admin Acetaminophen 650 mg 11/19/23 13:21 Acetaminophen 325 Mg Tablet PO Q4H PRN Mild Pain (1-3) or Fever Albuterol/Ipratropium 3 ml 11/19/23 14:00 11/20/23 13:42 Ipratropium 0.5 Mg/Albuterol Sulfate 2.5 Mg Ampul.Neb 3 Ml INHALATION 3 ml Q6HRT MERCEDES Administration Atorvastatin Calcium 40 mg 11/20/23 09:00 11/20/23 08:58 Atorvastatin 40 Mg Tablet PO 40 mg DAILY MERCEDES Administration Bupropion HCl 150 mg 11/20/23 09:00 11/20/23 08:58 Bupropion Hcl Xl (24 Hr) 150 Mg Tabcr PO 150 mg QAM MERCEDES Administration Duloxetine HCl 60 mg 11/20/23 09:00 11/20/23 08:58 Duloxetine Hcl 60 Mg Capsule.Dr BY MOUTH 60 mg DAILY MERCEDES Administration Finasteride 5 mg 11/20/23 09:00 11/20/23 08:58 Finasteride 5 Mg Tablet PO 5 mg DAILY MERCEDES Administration Ceftriaxone Sodium 1 gm in 50 mls @ 100 mls/hr 11/20/23 09:00 11/20/23 10:23 Rocephin 1 Gm/Ns 50 Ml IVPB 100 mls/hr Q24H MERCEDES Administration Azithromycin 500 mg in 250 mls @ 250 mls/hr 11/20/23 09:00 11/20/23 08:59 Zithromax IVPB 250 mls/hr Q24H MERCEDES Administration Ondansetron HCl 4 mg 11/19/23 13:21 Ondansetron Inj 4 Mg/2 Ml Vial IV PUSH Q4H PRN Nausea Oseltamivir Phosphate 75 mg 11/19/23 21:00 11/20/23 08:58 Oseltamivir Phosphate 75 Mg Capsule PO 11/24/23 20:59 75 mg Q12HR MERCEDES Administration Pantoprazole Sodium 40 mg 11/20/23 09:00 11/20/23 08:58 Pantoprazole 40 Mg Tablet PO 40 mg QAM MERCEDES Administration Tamsulosin HCl 0.4 mg 11/20/23 09:00 11/20/23 08:58 Tamsulosin Hcl 0.4 Mg Capsule BY MOUTH 0.4 mg DAILY MERCEDES Administration Radiology Results: ITS Impressions Chest X-Ray 11/19/23 12:19 IMPRESSION: 1. Unilateral patchy airspace opacities throughout the dependent right lung w hich is concerning for pneumonia. Labs Labs: Laboratory Results - last 24 hr 11/19/23 11/19/23 11/19/23 15:08 15:12 21:05 WBC RBC Hgb 8.1 L Hct 26.2 L MCV MCH MCHC RDW Plt Count MPV D-Dimer 3.06 H Sodium 141 Potassium 3.3 L Chloride 115 H Carbon Dioxide 22 Anion Gap 4 L BUN 26 H Creatinine 0.90 Estim Creat Clear Calc 69 Estimated GFR > 60 Glucose 100 Lactic Acid 2.4 H Calcium 7.3 L Magnesium 2.5 H Iron 50 TIBC 179 L % Saturation 28 Ferritin 284.00 H Vitamin B12 > 1000.0 H Folate 4.1 Procalcitonin 0.4 TSH (Reflex) 1.280 Stl Occult Blood (IFOB) Blood Type O Positive Antibody Screen Negative 11/20/23 11/20/23 03:57 04:44 WBC 11.8 H RBC 2.64 L Hgb 7.6 L Hct 24.4 L MCV 92.4 MCH 28.8 MCHC 31.1 L RDW 15.9 H Plt Count 409 H MPV 10.8 H D-Dimer Sodium 137 Potassium 3.1 L Chloride 113 H Carbon Dioxide 22 Anion Gap 2 L BUN 19 Creatinine 0.90 Estim Creat Clear Calc 69 Estimated GFR > 60 Glucose 137 H Lactic Acid Calcium 7.7 L Magnesium 2.4 H Iron TIBC % Saturation Ferritin Vitamin B12 Folate Procalcitonin TSH (Reflex) Stl Occult Blood (IFOB) Negative Blood Type Antibody Screen
[2023-11-20] MEDS: POTASSIUM CHLORIDE 20 MEQ ER TABLET 40 MEQ PO (15:00)
--- NOTE | 2023-11-20 15:55 | PC.NURSE ---
Patient transferred to unit from IMU via bed.
--- NOTE | 2023-11-20 17:12 | PC.NURSE ---
This patient, Reese Lynch Jr., was transferred to [[address] [place] [address] ] on 11/20/23 at 1555. Personal belongings sent with patient. Report given to [SARA Varner ]. Appropriate documentation sent with patient. Patient alert and oriented. Informed nurse of labs from this morning. Patient has been typed and screened.
[2023-11-21] VITALS (14 sets, daily range): BP systolic 85–143; BP diastolic 54–87; PULSE 77–114; RESP 16–20; TEMP 36.1–36.8; O2SAT 91–99
--- NOTE | 2023-11-21 05:19 | PC.NURSE ---
RN requested that morning labs be done once patient is awake. Patient was up most of the night and, at one point, was falling asleep sitting up. During the time that patient was awake, she was increasingly confused, more impulsive, and harder to reorient. Patient could benefit from a few hours of uninterrupted sleep. Will call lab once she is awake.
[2023-11-21 05:42] LABS: Basophils Percent Auto 0.4 % (0.2-1.2); Eosinophils Absolute Auto 0.2 K/mm3 (0-0.3); Eosinophils Percent Auto 1.9 % (0-4.4); Hematocrit 26.2 % (42.0-52.0); Hemoglobin 7.9 g/dL (14.0-18.0); Immature Granulocyte Percent A 1.9 % (0-0.5); Lymphocytes Absolute Auto 1.44 K/mm3 (0.9-3.2); Lymphocytes Percent Auto 13.8 % (18.3-44.2); Mean Corpuscular HGB Conc 30.2 g/dl (32-36); Mean Corpuscular Hemoglobin 28.5 pg (26-34); Mean Corpuscular Volume 94.6 fl (80-100); Mean Platelet Volume 10.7 fl (7.4-10.4); Monocytes Absolute Auto 0.7 K/mm3 (0.1-0.6); Monocytes Percent Auto 7.1 % (2.6-8.5); Neutrophils Absolute Auto 7.8 K/mm3 (1.3-6.7); Neutrophils Percent Auto 74.9 % (45.5-73.1); Platelet Count Result 467 k/mm3 (150-375); Red Blood Count 2.77 M/mm3 (4.6-6.20); Red Cell Distribution Width 16.1 % (11.5-14.5); White Blood Count 10.5 K/mm3 (4.5-10.0)
[2023-11-21 05:58] LABS: Alanine Aminotransferase 22 U/L (6-50); Albumin Level 2.7 g/dL (3.5-5.1); Alkaline Phosphatase 101 U/L (38-126); Anion Gap 2 mmol/L (8-16); Aspartate Amino Transferase 40 U/L (17-59); Bilirubin,Total 0.4 mg/dL (0.2-1.3); Blood Urea Nitrogen 10 mg/dL (9-20); Calcium 8.1 mg/dL (8.4-10.2); Carbon Dioxide 23 mmol/L (22-30); Chloride 113 mmol/L (98-107); Estimated CRCL calculation 69 ml/min; Estimated Glomerular Filt Rate > 60; Glucose 103 mg/dL (65-110); Magnesium 2.4 mg/dL (1.6-2.3); Sodium 138 mmol/L (137-145)
[2023-11-21] MEDS: IPRATROPIUM 0.5 MG/ALBUTEROL SULFATE 2.5 MG AMPUL.NEB 3 ML INHALATION ×3 (07:42→21:52)
[2023-11-21] MEDS: PANTOPRAZOLE 40 MG TABLET PO (08:23)
[2023-11-21] MEDS: FINASTERIDE 5 MG TABLET PO (08:23)
[2023-11-21] MEDS: DULoxetine HCL 60 MG CAPSULE.DR BY MOUTH (08:23)
[2023-11-21] MEDS: ATORVASTATIN 40 MG TABLET PO (08:23)
[2023-11-21] MEDS: OSELTAMIVIR PHOSPHATE 75 MG CAPSULE PO ×2 (08:23→20:47)
[2023-11-21] MEDS: buPROPion HCL XL (24 HR) 150 MG TABCR PO (08:23)
[2023-11-21] MEDS: TAMSULOSIN HCL 0.4 MG CAPSULE BY MOUTH (08:23)
[2023-11-21] MEDS: ENOXAPARIN 40 MG/0.4 ML SYRINGE SUB-Q (08:23)
[2023-11-21] MEDS: AZITHROMYCIN 500 MG/NS 250 ML 500 MG/250 ML BAG 250 MG IVPB (08:24)
[2023-11-21 10:49] LABS: MRSA (PCR) NOT DETECTED (NOT DETECTE)
--- NOTE | 2023-11-21 10:53 | P.PNIM_ITS ---
Progress Note: A&P Assessment and Plan (1) Pneumonia: Code(s): J18.9 - Pneumonia, unspecified organism Status: Acute Assessment and Plan: Patient presents with weakness. CXR showed unilateral patchy airspace opacities throughout the dependent right lung suggestive of pneumonia. DDimer positive and CTA chest showed no PE but multifocal bronchopneumonia most severe in the right lower lobe, fluid-filled and possibly infected right upper lobe pneumatocele, dependent left lower lobe consolidation (infection or rounded atelectasis), small bilateral pleural effusions and right hilar and mediastinal lymphadenopathy. He has been started on IV antibiotics with ceftriaxone and azithromycin. --CTA chest showing RUL scarring February 2023 Influenza B tested positive. Legionella and Pneumococcal Ag pending. Mycoplasma pending. BCx NGTD Sputum Cx pending MRSA nasal swab ordered. Pulmonary consult. Continue Rocephin and Azithro Continue bronchodilators (2) Influenza B: Code(s): J10.1 - Influenza due to other identified influenza virus with other respiratory manifestations Status: Acute Assessment and Plan: Patient tested positive for Influenza B. Influenza A, RSV and COVID negative Started on Tamiflu Supportive care (3) Hypoxia: Code(s): R09.02 - Hypoxemia Status: Acute Assessment and Plan: Related to above (4) Hypokalemia: Code(s): E87.6 - Hypokalemia Status: Acute Assessment and Plan: Potassium low on admission and was replaced Follow and replace as needed. (5) Normocytic anemia: Code(s): D64.9 - Anemia, unspecified Status: Acute Assessment and Plan: Last Hgb normal at 13.6 in May 2022. Hgb 8.9 on admission and has trended down to 7 range. B12/Folate normal. Stool guaiac negative. Iron normal with TIBC low and normal TSAT. Ferritin elevated Consistent with anemia of chronic disease. Trace protein in the urine but albumin 2.8 on admission. Check protein to Cr ratio (6) Peripheral vascular disease: Code(s): I73.9 - Peripheral vascular disease, unspecified Status: Acute Assessment and Plan: Patient with known PVD. Continue Lipitor. Add back ASA and Plavix Continue PPI (7) Hypertension: Qualifiers: Hypertension type: essential hypertension Qualified Code(s): I10 - Essential (primary) hypertension Code(s): I10 - Essential (primary) hypertension Status: Acute Assessment and Plan: Patient's blood pressure was reviewed on 11/20 Blood pressure remains soft. Not on anti-HTN currently Will continue to monitor Add 1L of NS. Plan Code status - full DVT prophylaxis with Lovenox Subjective Date/time seen: 11/21/23 10:53 Interval history: 73yo male with CVA, diastolic dysfxn, HTN and Staph PNA with empyema here for weakness Assuming care. Chart reviewed. Feeling better. Cough improved. Hx of right sided staph lung infection requiring drainage. Exam Narrative: AF 97.6 99/54 91 20 91% ra Gen - NARD Chest - inspiratory crackles bibasilar and right mid and upper lung zone CV - RRR S1/S2 Abd - Soft, NT/ND, Positive BS Ext - No pedal edema Psych - Nml mood and affect Skin - Warm and dry Objective Data Vital Signs Vital Signs: Vital Signs - 24 hr 11/20/23 12:00 11/20/23 13:42 11/20/23 13:52 Temperature 97.6 F Pulse Rate 90 79 85 Respiratory Rate 28 H 20 20 Blood Pressure 92/56 L Pulse Oximetry 93 Oxygen Delivery Oxygen Flow Rate Fraction of Inspired Oxygen 11/20/23 12:00 11/20/23 12:00 11/20/23 16:14 Temperature Pulse Rate 81 Respiratory Rate Blood Pressure Pulse Oximetry 93 95 Oxygen Delivery Nasal Cannula Nasal Cannula Oxygen Flow Rate 2 2 Fraction of Inspired Oxygen 11/20/23 18:15 11/20/23 19:38 11/20/23 19:38 Temperature 97.8 F Pulse Rate 66 85 Respiratory Rate 16 18 Blood Pressure 85/48 L Pulse Oximetry 96 92 Oxygen Delivery Nasal Cannula Oxygen Flow Rate 2 Fraction of Inspired Oxygen 28 11/20/23 19:44 11/20/23 19:49 11/20/23 19:59 Temperature 97.3 F L 97.3 F L Pulse Rate 90 82 82 Respiratory Rate 18 18 18 Blood Pressure 90/55 L 90/55 L Pulse Oximetry 95 95 Oxygen Delivery Oxygen Flow Rate Fraction of Inspired Oxygen 11/20/23 19:56 11/20/23 19:57 11/20/23 20:00 Temperature 97.3 F L 97.3 F L Pulse Rate 94 106 H Respiratory Rate 18 18 Blood Pressure 93/66 L 100/61 Pulse Oximetry 96 98 95 Oxygen Delivery Nasal Cannula Oxygen Flow Rate 2 Fraction of Inspired Oxygen 11/21/23 05:05 11/21/23 07:42 11/21/23 07:47 Temperature 97.6 F Pulse Rate 83 94 94 Respiratory Rate 20 20 20 Blood Pressure 99/54 L Pulse Oximetry 95 91 Oxygen Delivery Room Air Oxygen Flow Rate Fraction of Inspired Oxygen 11/21/23 07:57 11/21/23 08:20 Temperature Pulse Rate 91 Respiratory Rate 20 Blood Pressure Pulse Oximetry Oxygen Delivery Room Air Oxygen Flow Rate Fraction of Inspired Oxygen Intake/Output Intake/Output: Intake & Output 11/18/23 11/19/23 11/20/23 11/21/23 23:59 23:59 23:59 23:59 Intake Total 3160 790 510 Output Total 950 250 650 Balance 2210 540 -140 Meds/Results Medications: Active Medications Generic Name Dose Route Start Last Admin Trade Name Freq PRN Reason Stop Dose Admin Acetaminophen 650 mg 11/19/23 13:21 Acetaminophen 325 Mg Tablet PO Q4H PRN Mild Pain (1-3) or Fever Albuterol/Ipratropium 3 ml 11/19/23 14:00 11/21/23 07:42 Ipratropium 0.5 Mg/Albuterol Sulfate 2.5 Mg Ampul.Neb 3 Ml INHALATION 3 ml Q6HRT MERCEDES Administration Atorvastatin Calcium 40 mg 11/20/23 09:00 11/21/23 08:23 Atorvastatin 40 Mg Tablet PO 40 mg DAILY MERCEDES Administration Bupropion HCl 150 mg 11/20/23 09:00 11/21/23 08:23 Bupropion Hcl Xl (24 Hr) 150 Mg Tabcr PO 150 mg QAM MERCEDES Administration Duloxetine HCl 60 mg 11/20/23 09:00 11/21/23 08:23 Duloxetine Hcl 60 Mg Capsule.Dr BY MOUTH 60 mg DAILY MERCEDES Administration Enoxaparin Sodium 40 mg 11/21/23 09:00 11/21/23 08:23 Enoxaparin 40 Mg/0.4 Ml Syringe SUB-Q 40 mg DAILY MERCEDES Administration Finasteride 5 mg 11/20/23 09:00 11/21/23 08:23 Finasteride 5 Mg Tablet PO 5 mg DAILY MERCEDES Administration Ceftriaxone Sodium 1 gm in 50 mls @ 100 mls/hr 11/20/23 09:00 11/20/23 10:23 Rocephin 1 Gm/Ns 50 Ml IVPB 100 mls/hr Q24H MERCEDES Administration Azithromycin 500 mg in 250 mls @ 250 mls/hr 11/20/23 09:00 11/21/23 08:24 Zithromax IVPB 250 mls/hr Q24H MERCEDES Administration Ondansetron HCl 4 mg 11/19/23 13:21 Ondansetron Inj 4 Mg/2 Ml Vial IV PUSH Q4H PRN Nausea Oseltamivir Phosphate 75 mg 11/19/23 21:00 11/21/23 08:23 Oseltamivir Phosphate 75 Mg Capsule PO 11/24/23 20:59 75 mg Q12HR MERCEDES Administration Pantoprazole Sodium 40 mg 11/20/23 09:00 11/21/23 08:23 Pantoprazole 40 Mg Tablet PO 40 mg QAM MERCEDES Administration Tamsulosin HCl 0.4 mg 11/20/23 09:00 11/21/23 08:23 Tamsulosin Hcl 0.4 Mg Capsule BY MOUTH 0.4 mg DAILY MERCEDES Administration Radiology Results: ITS Impressions Chest X-Ray 11/19/23 12:19 IMPRESSION: 1. Unilateral patchy airspace opacities throughout the dependent right lung which is concerning for pneumonia. Chest CTA 11/20/23 21:51 IMPRESSION: No CT evidence of acute pulmonary embolus. Multifocal bronchopneumonia, most severe in the right lower lobe. Fluid-filled, possibly infected right upper lobe pneumatocele. Dependent left lower lobe consolidation may represent an additional site of infection or rounded atelectasis. Small bilateral pleural effusions. Right hilar and mediastinal lymphadenopathy. Labs Labs: Laboratory Results - last 24 hr 11/21/23 11/21/23 05:16 09:31 WBC 10.5 H RBC 2.77 L Hgb 7.9 L Hct 26.2 L MCV 94.6 MCH 28.5 MCHC 30.2 L RDW 16.1 H Plt Count 467 H MPV 10.7 H Immature Gran % (Auto) 1.9 H Neut % (Auto) 74.9 H Lymph % (Auto) 13.8 L [place] % (Auto) 7.1 Eos % (Auto) 1.9 Baso % (Auto) 0.4 Lymph # (Auto) 1.44 [place] # (Auto) 0.7 H Eos # (Auto) 0.2 Baso # (Auto) 0.0 Abs Immat Gran (auto) 0.20 H Absolute Neuts (auto) 7.8 H Absolute Nucleated RBC 0.000 Nucleated RBC % 0.0 Sodium 138 Potassium 4.0 Chloride 113 H Carbon Dioxide 23 Anion Gap 2 L BUN 10 D Creatinine 0.90 Estim Creat Clear Calc 69 Estimated GFR > 60 Glucose 103 Calcium 8.1 L Magnesium 2.4 H Total Bilirubin 0.4 AST 40 ALT 22 Alkaline Phosphatase 101 Total Protein 7.0 Albumin 2.7 L Nasal MRSA (PCR) Not detected
--- NOTE | 2023-11-21 11:53 | P.CONPL_ITS ---
Assessment and Plan Assessment and plan (1) Pneumonia: Code(s): J18.9 - Pneumonia, unspecified organism Status: Acute Assessment and Plan: Patient has diffuse necrotizing pneumonia in the right upper lobe, dense, out of proportion to normal viral pneumonia, primary influenza B infection. He has a secondary bacterial infection. He is responding to treatment, white blood cell count is lower, no fever, currently on IV azithromycin and ceftriaxone 1 g a day. (2) Influenza B: Code(s): J10.1 - Influenza due to other identified influenza virus with other respiratory manifestations Status: Acute Assessment and Plan: He has a positive influenza B swab, other viral pathogens were negative, influenza a, COVID, RSV. He is on oseltamivir po 75 mg b.i.d. (3) Sepsis: Code(s): A41.9 - Sepsis, unspecified organism Status: Acute Assessment and Plan: Resolved; had BP 61, saturation in low 80s, lactic acid 2.4, low K+ 2.9, D- dimer elevated 3.06 and normocytic anemia. He still has the anemia, other labs are better. Plan This 73-year-old man never smoker, no lung disease, was admitted with influenza B, diffuse multifocal right lower lobe pneumonia which is likely a secondary bacterial infection, admitted with sepsis, volume depletion, responded to fluids. The infiltrate is worse than expected for Influenza B, so he likely has a secondary bacterial process. He does not have sputum to test, WBC is lower, 16.7 k down to 8 K, no fever, BP better. He is off O2. His MRSA swab was negative, reassuring as staph pneumonia can complicate influenza. plan: send urine antigens for S pneumo and Legionella, try to find bacterial agent that is involved. Likely pneumococcus. He will need more imaging, could take a couple months for this to resolve radiographically. He is not as frail, dizzy, or weak. Go up on dose of ceftriaxone to 2 grams to cover community acquired pneumonia b yecenia, and he is at risk for deterioration due to age > 65 and prior stroke. If he worsens, change ceftriaxone to ceftaroline 600 mg IV or meropenem 1 g IV Q 8 hr + Levaquin 750 mg a day. He does not have a hx of aspiration, could consider swallow evaluation if he does not get better and if he has witnessed choking with eating. History of Present Illness History of Present Illness Consult date: 11/22/23 Requesting physician: Marvel Graves MD Chief complaint: Influenza B/Pneumonia/Sepsis/Hypoxia Narrative: November 22, 2023 @ 10:30 am Room 253 NEW: Reese Lynch is a 73-yo man never smoker admitted with shortness of breath and weakness, arrived by ambulance from a [employer], found in the tripod position, saturation in the low 80s. He deteriorated when he went from inside the store into the cold air on Nov 18. . BP was 61/27. In the ED, still was hypotensive 89/62 which corrected with IV fluids in the emergency department. He had an elevated white blood cell count of 16.1 lactic acid was elevated 2.6 and his influenza B swab was positive. He had a dense infiltrate in the right lower lobe and possible pneumatocele in RUL. Was started on empiric antibiotics azithromycin and ceftriaxone. He was not feeling well since November 08 when he worked on his 20 year old [employer], Trying to replace the starter. He was cold outside, was lying on the ground, under the car, on his back, feeling cold weather and not enough clothing. He developed cold feeling in the right hand, coughing, shortness of breath which worsened over days; additional symptoms included nasal congestion, sniffles, cough without sputum, a sore throat, decreased intake mainly only taking in fluids. He had loose dark stools. He he had increasing shortness of breath and chest pain in the right upper chest with taking a breath in. He described it as a burning sensation with sharp pain throughout his ribs. No fever, no headache, he had some minimal swelling of the left ankle. He did not have calf swelling. Patient has never smoked, has no underlying history of lung disease. He has not had a productive cough. The patient has no history of asthma, inhalers, travel, no exposure to sick individuals. 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 PMH: HTN, stroke, (R) carotid endarterectomy, peripheral arterial disease, hyperlipidemia. Takes Flomax DATA * 11/21/2023- IMPRESSION: No CT evidence of acute pulmonary embolus. Multifocal bronchopneumonia, most severe in the right lower lobe. Fluid-filled, possibly infected right upper lobe pneumatocele. Dependent left lower lobe consolidation may represent an additional site of infection or rounded atelectasis. Small bilateral pleural effusions. Right hilar and mediastinal lymphadenopathy. This is a outbound telemarketing representative slice RUL; it is really dense, extensive. Review of Systems Review of Systems: slight swelling left ankle All systems reviewed & are unremarkable except as noted in HPI and below PMFSH Past Medical History Medical History Anemia Anxiety Benign prostatic hyperplasia Carotid artery disease Status post right carotid endarterectomy. Left carotid bulb moderate plaque and 45% stenosis on CTA of the head and neck dated 11/29/2020. Cerebrovascular accident (07/2016) Attributed to carotid artery disease. Status post right carotid endarterectomy. Depression Diastolic dysfunction Echocardiogram in July 2016 showed normal left ventricular systolic function, mild LVH, and grade 1 diastolic dysfunction with an ejection fraction of 60%. Gastroesophageal reflux disease History of kidney stones History of staph infection (2009) Staph pneumonia, possible empyema. Hyperlipidemia Hypertension Peripheral vascular disease Spinal stenosis Surgical History Surgical History History of arthroscopy of right knee History of bilateral carpal tunnel release History of right-sided carotid endarterectomy History of spinal surgery Family History Family History Mother Hypertension Social History Social History Social History: Surrogate decision maker: Juliette Javed, daughter. Code status: Full code. Smoking status: Never smoker Second hand tobacco smoke exposure: No Alcohol intake: never Substance use: never Substance use type: marijuana Do You Feel Safe in your Home?: Yes Lack of Transportation: No Lack of Food: Never True Current Housing: I Have Housing Concerned About Future Housing: No Difficulty Paying Gas/Electric Bills: No Difficulty Paying for Meds: No Currently Unemployed: No Education: Grade School Difficulty w/ Childcare or Family Care: No Living arrangements: with family Additional living arrangements comments: Lives in [place]. One son lives at home with him. 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 Spiritual care concerns: No Meds Home Medications and Allergies Home Medications Medication Instructions Recorded Confirmed Type aspirin 81 mg tablet,delayed 81 mg PO DAILY 10/21/19 11/19/23 History release atorvastatin 40 mg tablet (Lipitor) 40 mg PO DAILY 30 days #90 tabs 03/01/23 11/19/23 Rx pantoprazole 40 mg tablet,delayed 40 mg PO QAM gastroesophageal 03/01/23 11/19/23 Rx release reflux disease 30 days #90 tabs finasteride 5 mg tablet 5 mg PO DAILY #90 tabs 03/26/23 11/19/23 Rx clopidogrel 75 mg tablet 75 mg PO QAM #90 tabs 08/13/23 11/19/23 Rx tamsulosin 0.4 mg capsule See Rx Instructions .Route 09/14/23 11/19/23 Rx .COMPLEX #90 caps amlodipine 10 mg tablet 10 mg PO DAILY #90 tabs 10/18/23 11/19/23 Rx bupropion HCl 150 mg 24 hr tablet, 150 mg PO QAM #90 tabs 11/02/23 11/19/23 Rx extended release duloxetine 60 mg capsule,delayed See Rx Instructions .Route 11/02/23 11/19/23 Rx release .COMPLEX #90 caps diclofenac sodium 75 mg See Rx Instructions .Route 11/21/23 Rx tablet,delayed release .COMPLEX #60 tabs Allergies Allergy/AdvReac Type Severity Reaction Status Date / Time amitriptyline AdvReac Mild Confusion Verified 03/14/23 15:01 Vital Signs Vital Signs - 24 hr 11/20/23 12:00 11/20/23 13:42 11/20/23 13:52 Temperature 36.4 C Pulse Rate 90 79 85 Respiratory Rate 28 H 20 20 Blood Pressure 92/56 L Pulse Oximetry 93 Oxygen Delivery Oxygen Flow Rate Fraction of Inspired Oxygen 11/20/23 12:00 11/20/23 12:00 11/20/23 16:14 Temperature Pulse Rate 81 Respiratory Rate Blood Pressure Pulse Oximetry 93 95 Oxygen Delivery Nasal Cannula Nasal Cannula Oxygen Flow Rate 2 2 Fraction of Inspired Oxygen 11/20/23 18:15 11/20/23 19:38 11/20/23 19:38 Temperature 36.6 C Pulse Rate 66 85 Respiratory Rate 16 18 Blood Pressure 85/48 L Pulse Oximetry 96 92 Oxygen Delivery Nasal Cannula Oxygen Flow Rate 2 Fraction of Inspired Oxygen 28 11/20/23 19:44 11/20/23 19:49 11/20/23 19:59 Temperature 36.3 C L 36.3 C L Pulse Rate 90 82 82 Respiratory Rate 18 18 18 Blood Pressure 90/55 L 90/55 L Pulse Oximetry 95 95 Oxygen Delivery Oxygen Flow Rate Fraction of Inspired Oxygen 11/20/23 19:56 11/20/23 19:57 11/20/23 20:00 Temperature 36.3 C L 36.3 C L Pulse Rate 94 106 H Respiratory Rate 18 18 Blood Pressure 93/66 L 100/61 Pulse Oximetry 96 98 95 Oxygen Delivery Nasal Cannula Oxygen Flow Rate 2 Fraction of Inspired Oxygen 11/21/23 05:05 11/21/23 07:42 11/21/23 07:47 Temperature 36.4 C Pulse Rate 83 94 94 Respiratory Rate 20 20 20 Blood Pressure 99/54 L Pulse Oximetry 95 91 Oxygen Delivery Room Air Oxygen Flow Rate Fraction of Inspired Oxygen 11/21/23 07:57 11/21/23 08:20 11/21/23 10:59 Temperature 36.6 C Pulse Rate 91 91 Respiratory Rate 20 16 Blood Pressure 85/59 L Pulse Oximetry 99 Oxygen Delivery Room Air Oxygen Flow Rate Fraction of Inspired Oxygen 11/21/23 11:04 11/21/23 11:09 Temperature 36.1 C L 36.1 C L Pulse Rate 87 114 H Respiratory Rate 16 16 Blood Pressure 98/74 L 119/71 Pulse Oximetry 94 94 Oxygen Delivery Oxygen Flow Rate Fraction of Inspired Oxygen Exam Narrative: GEN: Alert, oriented, not in distress. He is on room air, 94% saturation, reclined in bed flat, not short of breath. Feels much better compared to Nov 18 admission. HEENT: pupils are equal, EOMI, symmetrical face; oral membranes moist, Mallampati II airway NECK: Trachea is midline CHEST: Equal air entry, symmetric excursion, harsh rhonchi all over; E->A changes right upper lung posteriorly. Expiratory wheezes throughout. CV: Regular S1S2 no m/g/r ABD : (+) bowel sounds Extremities : no clubbing or cyanosis; trace let ankle edema. PSYCH: normal thought and speech. Maybe hear of hearing. Results Laboratory Findings 11/22/23 05:22 11/22/23 05:22 ABG, PT/INR, D-dimer: PT/INR, D-dimer PT 15.5 Seconds (11.1-14.7) H 11/19/23 11:44 INR 1.2 11/19/23 11:44 D-Dimer 3.06 ug/mL (<0.48) H 11/19/23 21:05 Abnormal lab findings: Abnormal Labs 11/19/23 11/19/23 11/19/23 11:44 11:45 11:57 WBC 16.1 H RBC 3.07 L Hgb 8.9 L D Hct 27.8 L MCHC RDW 15.9 H Plt Count 431 H D MPV 11.0 H Immature Gran % (Auto) 2.9 H Neut % (Auto) 83.6 H Lymph % (Auto) 7.8 L [place] # (Auto) 0.7 H Abs Immat Gran (auto) 0.47 H Absolute Neuts (auto) 13.5 H PT 15.5 H APTT 37.9 H D-Dimer Potassium 2.9 L Chloride 111 H Anion Gap 6 L BUN 31 H D Glucose 163 H Lactic Acid 2.6 H Calcium 8.1 L Magnesium TIBC Ferritin Albumin 2.8 L Vitamin B12 Influenza B (RT-PCR) Positive A 11/19/23 11/19/23 11/19/23 15:08 15:12 21:05 WBC RBC Hgb 8.1 L Hct 26.2 L MCHC RDW Plt Count MPV Immature Gran % (Auto) Neut % (Auto) Lymph % (Auto) [place] # (Auto) Abs Immat Gran (auto) Absolute Neuts (auto) PT APTT D-Dimer 3.06 H Potassium 3.3 L Chloride 115 H Anion Gap 4 L BUN 26 H Glucose Lactic Acid 2.4 H Calcium 7.3 L Magnesium 2.5 H TIBC 179 L Ferritin 284.00 H Albumin Vitamin B12 > 1000.0 H Influenza B (RT-PCR) 11/20/23 11/21/23 03:57 05:16 WBC 11.8 H 10.5 H RBC 2.64 L 2.77 L Hgb 7.6 L 7.9 L Hct 24.4 L 26.2 L MCHC 31.1 L 30.2 L RDW 15.9 H 16.1 H Plt Count 409 H 467 H MPV 10.8 H 10.7 H Immature Gran % (Auto) 1.9 H Neut % (Auto) 74.9 H Lymph % (Auto) 13.8 L [place] # (Auto) 0.7 H Abs Immat Gran (auto) 0.20 H Absolute Neuts (auto) 7.8 H PT APTT D-Dimer Potassium 3.1 L Chloride 113 H 113 H Anion Gap 2 L 2 L BUN Glucose 137 H Lactic Acid Calcium 7.7 L 8.1 L Magnesium 2.4 H 2.4 H TIBC Ferritin Albumin 2.7 L Vitamin B12 Influenza B (RT-PCR) [facility] Consult Billing Inpatient Consult Inpatient Consults: [id number] Consult High
[2023-11-21] MEDS: SODIUM CHLORIDE 0.9% IV 1,000 ML 100 ML IV CONT (12:29)
[2023-11-21 14:48] LABS: Creatinine Urine 139.4 mg/dL; Total Protein Urine Random 31 mg/dL; Ur Ttl Prot Creatinine Ratio 0.22 mg/mg (0-0.20)
[2023-11-21] MEDS: ACETAMINOPHEN 325 MG TABLET 650 MG PO (19:02)
[2023-11-22] VITALS (20 sets, daily range): BP systolic 97–128; BP diastolic 60–71; PULSE 77–106; RESP 16–18; TEMP 36.3–36.6; O2SAT 90–98
[2023-11-22] MEDS: IPRATROPIUM 0.5 MG/ALBUTEROL SULFATE 2.5 MG AMPUL.NEB 3 ML INHALATION ×4 (03:04→20:26)
[2023-11-22 05:51] LABS: Basophils Absolute Auto 0.1 K/mm3 (0.0-0.1); Basophils Percent Auto 0.6 % (0.2-1.2); Eosinophils Absolute Auto 0.1 K/mm3 (0-0.3); Eosinophils Percent Auto 1.5 % (0-4.4); Hematocrit 24.8 % (42.0-52.0); Hemoglobin 7.6 g/dL (14.0-18.0); Immature Granulocyte Absolute 0.15 K/mm3 (0.00-0.031); Immature Granulocyte Percent A 1.7 % (0-0.5); Lymphocytes Absolute Auto 1.06 K/mm3 (0.9-3.2); Lymphocytes Percent Auto 11.9 % (18.3-44.2); Mean Corpuscular HGB Conc 30.6 g/dl (32-36); Mean Corpuscular Hemoglobin 28.8 pg (26-34); Mean Corpuscular Volume 93.9 fl (80-100); Mean Platelet Volume 10.9 fl (7.4-10.4); Monocytes Absolute Auto 0.5 K/mm3 (0.1-0.6); Neutrophils Percent Auto 78.3 % (45.5-73.1); Platelet Count Result 441 k/mm3 (150-375); Red Blood Count 2.64 M/mm3 (4.6-6.20); Red Cell Distribution Width 16.4 % (11.5-14.5); White Blood Count 8.9 K/mm3 (4.5-10.0)
[2023-11-22 06:00] LABS: Albumin Level 2.6 g/dL (3.5-5.1); Anion Gap 3 mmol/L (8-16); Blood Urea Nitrogen 10 mg/dL (9-20); Carbon Dioxide 23 mmol/L (22-30); Chloride 112 mmol/L (98-107); Estimated CRCL calculation 69 ml/min; Estimated Glomerular Filt Rate > 60; Glucose 109 mg/dL (65-110); Magnesium 2.3 mg/dL (1.6-2.3); Phosphorus 2.7 mg/dL (2.5-4.5); Potassium 3.7 mmol/L (3.4-5.0); Sodium 138 mmol/L (137-145)
[2023-11-22] MEDS: ENOXAPARIN 40 MG/0.4 ML SYRINGE SUB-Q (08:31)
[2023-11-22] MEDS: TAMSULOSIN HCL 0.4 MG CAPSULE BY MOUTH (08:31)
[2023-11-22] MEDS: PANTOPRAZOLE 40 MG TABLET PO (08:31)
[2023-11-22] MEDS: ASPIRIN 81 MG ENTERIC TABLET PO (08:31)
[2023-11-22] MEDS: ATORVASTATIN 40 MG TABLET PO (08:31)
[2023-11-22] MEDS: OSELTAMIVIR PHOSPHATE 75 MG CAPSULE PO ×2 (08:31→20:17)
[2023-11-22] MEDS: buPROPion HCL XL (24 HR) 150 MG TABCR PO (08:32)
[2023-11-22] MEDS: CLOPIDOGREL BISULFATE 75 MG TABLET PO (08:33)
[2023-11-22] MEDS: FINASTERIDE 5 MG TABLET PO (08:33)
[2023-11-22] MEDS: DULoxetine HCL 60 MG CAPSULE.DR BY MOUTH (08:33)
[2023-11-22] MEDS: AZITHROMYCIN 500 MG/NS 250 ML 500 MG/250 ML BAG 250 MG IVPB (09:28)
[2023-11-22] MEDS: ACETAMINOPHEN 325 MG TABLET 650 MG PO (09:36)
[2023-11-22 13:06] LABS: Mycoplasma IgM Antibody Titer 54 U/mL (<770)
--- NOTE | 2023-11-22 17:01 | PM.IMPN ---
Progress Note: A&P Assessment and Plan (1) Pneumonia: Code(s): J18.9 - Pneumonia, unspecified organism Status: Acute Assessment and Plan: Patient presents with weakness. CXR showed unilateral patchy airspace opacities throughout the dependent right lung suggestive of pneumonia. DDimer was positive and CTA chest performed showing no PE but multifocal bronchopneumonia most severe in the right lower lobe, fluid-filled and possibly infected right upper lobe pneumatocele, dependent left lower lobe consolidation (infection or rounded atelectasis), small bilateral pleural effusions and right hilar and mediastinal lymphadenopathy. --CTA chest showing RUL scarring February 2023 He was started on IV antibiotics with ceftriaxone and azithromycin. MRSA nasal swab negative. Influenza B positive. Legionella and Pneumococcal Ag pending. Mycoplasma pending. BCx NGTD Sputum Cx pending No fevers and WBC normal. Pulmonary consulted and appreciate their input. Continue Rocephin at 2gm and Azithro Continue bronchodilators ST to evaluate. Check CRP (2) Influenza B: Code(s): J10.1 - Influenza due to other identified influenza virus with other respiratory manifestations Status: Acute Assessment and Plan: Patient tested positive for Influenza B. Influenza A, RSV and COVID PCR negative Started on Tamiflu Continue supportive care (3) Hypoxia: Code(s): R09.02 - Hypoxemia Status: Acute Assessment and Plan: Related to above Weaned to room air (4) Hypokalemia: Code(s): E87.6 - Hypokalemia Status: Acute Assessment and Plan: Potassium low on admission and was replaced Follow and replace as needed. (5) Normocytic anemia: Code(s): D64.9 - Anemia, unspecified Status: Acute Assessment and Plan: Last Hgb normal at 13.6 in May 2022. Hgb 8.9 on admission and has trended down to 7 range. B12/Folate normal. Stool guaiac negative. Iron normal with TIBC low and normal TSAT. Ferritin elevated as an acute phase reactant Protein/Cr ratio 0.22gm Anemia consistent with anemia of chronic disease. Follow HH and transfuse as needed. Hematolgy consult after discharge. (6) Peripheral vascular disease: Code(s): I73.9 - Peripheral vascular disease, unspecified Status: Acute Assessment and Plan: Patient with known PVD. Continue Lipitor. ASA and Plavix held but now added back Continue PPI (7) Hypertension: Qualifiers: Hypertension type: essential hypertension Qualified Code(s): I10 - Essential (primary) hypertension Code(s): I10 - Essential (primary) hypertension Status: Acute Assessment and Plan: Patient's blood pressure was reviewed on 11/21 Blood pressure was soft so 1L NS given. Not on anti-HTN currently BP better today. Will continue to monitor Plan Code status - full DVT prophylaxis with Lovenox Disp - PT/OT Subjective Date/time seen: 11/22/23 17:01 Interval history: 73yo male with CVA, diastolic dysfxn, HTN and Staph PNA with empyema here for weakness Slept well. Cough is nonproductive. No chest pain. Having upper mid back pain that he states is chronic and comes/go over the years. +BARRIENTOS. Eating okay. Exam Narrative: AF 97.7 118/60 85 18 91% ra Gen - NARD Chest - inspiratory crackles right mid and upper lung zones CV - RRR S1/S2 Abd - Soft, NT/ND, Positive BS Ext - No pedal edema Psych - Nml mood and affect Skin - Warm and dry Objective Data Vital Signs Vital Signs: Vital Signs - 24 hr 11/21/23 20:00 11/21/23 21:20 11/21/23 21:20 Temperature Pulse Rate Respiratory Rate Blood Pressure 104/63 112/72 143/87 H Pulse Oximetry Oxygen Delivery 11/21/23 21:54 11/21/23 21:54 11/22/23 00:00 Temperature 97.9 F Pulse Rate 77 85 Respiratory Rate 18 18 Blood Pressure 115/63 Pulse Oximetry 96 98 Oxygen Delivery Room Air 11/22/23 03:09 11/21/23 22:05 11/22/23 03:20 Temperature Pulse Rate 83 79 86 Respiratory Rate 18 18 18 Blood Pressure Pulse Oximetry Oxygen Delivery 11/22/23 08:00 11/22/23 08:45 11/22/23 08:49 Temperature 97.7 F Pulse Rate 82 87 Respiratory Rate 18 18 Blood Pressure 118/60 Pulse Oximetry 97 Oxygen Delivery Room Air 11/22/23 08:58 11/22/23 08:58 11/22/23 13:13 Temperature Pulse Rate 83 87 84 Respiratory Rate 18 18 18 Blood Pressure Pulse Oximetry 91 Oxygen Delivery Room Air 11/22/23 13:22 Temperature Pulse Rate 85 Respiratory Rate 18 Blood Pressure Pulse Oximetry Oxygen Delivery Intake/Output Intake/Output: Intake & Output 11/19/23 11/20/23 11/21/23 11/22/23 23:59 23:59 23:59 23:59 Intake Total 3160 840 1390 1820 Output Total 950 250 650 550 Balance 2210 755 118 2784 Meds/Results Medications: Active Medications Generic Name Dose Route Start Last Admin Trade Name Freq PRN Reason Stop Dose Admin Acetaminophen 650 mg 11/19/23 13:21 11/22/23 09:36 Acetaminophen 325 Mg Tablet PO 650 mg Q4H PRN Administration Mild Pain (1-3) or Fever Albuterol/Ipratropium 3 ml 11/19/23 14:00 11/22/23 13:12 Ipratropium 0.5 Mg/Albuterol Sulfate 2.5 Mg Ampul.Neb 3 Ml INHALATION 3 ml Q6HRT MERCEDES Administration Aspirin 81 mg 11/22/23 09:00 11/22/23 08:31 Aspirin 81 Mg Enteric Tablet PO 81 mg DAILY MERCEDES Administration Atorvastatin Calcium 40 mg 11/20/23 09:00 11/22/23 08:31 Atorvastatin 40 Mg Tablet PO 40 mg DAILY MERCEDES Administration Bupropion HCl 150 mg 11/20/23 09:00 11/22/23 08:32 Bupropion Hcl Xl (24 Hr) 150 Mg Tabcr PO 150 mg QAM MERCEDES Administration Clopidogrel Bisulfate 75 mg 11/22/23 09:00 11/22/23 08:33 Clopidogrel Bisulfate 75 Mg Tablet PO 75 mg QAM MERCEDES Administration Duloxetine HCl 60 mg 11/20/23 09:00 11/22/23 08:33 Duloxetine Hcl 60 Mg Capsule.Dr BY MOUTH 60 mg DAILY MERCEDES Administration Enoxaparin Sodium 40 mg 11/21/23 09:00 11/22/23 08:31 Enoxaparin 40 Mg/0.4 Ml Syringe SUB-Q 40 mg DAILY MERCEDES Administration Finasteride 5 mg 11/20/23 09:00 11/22/23 08:33 Finasteride 5 Mg Tablet PO 5 mg DAILY MERCEDES Administration Azithromycin 500 mg in 250 mls @ 250 mls/hr 11/20/23 09:00 11/22/23 10:28 Zithromax IVPB Infused Q24H MERCEDES Infusion Ceftriaxone Sodium 2 gm in 100 mls @ 200 mls/hr 11/22/23 21:00 Rocephin 2 Gm/Ns 100 Ml IVPB Q24H MERCEDES Ondansetron HCl 4 mg 11/19/23 13:21 Ondansetron Inj 4 Mg/2 Ml Vial IV PUSH Q4H PRN Nausea Oseltamivir Phosphate 75 mg 11/19/23 21:00 11/22/23 08:31 Oseltamivir Phosphate 75 Mg Capsule PO 11/24/23 20:59 75 mg Q12HR MERCEDES Administration Pantoprazole Sodium 40 mg 11/20/23 09:00 11/22/23 08:31 Pantoprazole 40 Mg Tablet PO 40 mg QAM MERCEDES Administration Tamsulosin HCl 0.4 mg 11/20/23 09:00 11/22/23 08:31 Tamsulosin Hcl 0.4 Mg Capsule BY MOUTH 0.4 mg DAILY MERCEDES Administration Radiology Results: ITS Impressions Chest X-Ray 11/19/23 12:19 IMPRESSION: 1. Unilateral patchy airspace opacities throughout the dependent right lung which is concerning for pneumonia. Chest CTA 11/20/23 21:51 IMPRESSION: No CT evidence of acute pulmonary embolus. Multifocal bronchopneumonia, most severe in the right lower lobe. Fluid-filled, possibly infected right upper lobe pneumatocele. Dependent left lower lobe consolidation may represent an additional site of infection or rounded atelectasis. Small bilateral pleural effusions. Right hilar and mediastinal lymphadenopathy. Labs Labs: Laboratory Results - last 24 hr 11/19/23 11/22/23 21:05 05:22 WBC 8.9 RBC 2.64 L Hgb 7.6 L Hct 24.8 L MCV 93.9 MCH 28.8 MCHC 30.6 L RDW 16.4 H Plt Count 441 H MPV 10.9 H Immature Gran % (Auto) 1.7 H Neut % (Auto) 78.3 H Lymph % (Auto) 11.9 L [place] % (Auto) 6.0 Eos % (Auto) 1.5 Baso % (Auto) 0.6 Lymph # (Auto) 1.06 [place] # (Auto) 0.5 Eos # (Auto) 0.1 Baso # (Auto) 0.1 Abs Immat Gran (auto) 0.15 H Absolute Neuts (auto) 7.0 H Absolute Nucleated RBC 0.000 Nucleated RBC % 0.0 Sodium 138 Potassium 3.7 Chloride 112 H Carbon Dioxide 23 Anion Gap 3 L BUN 10 Creatinine 0.90 Estim Creat Clear Calc 69 Estimated GFR > 60 Glucose 109 Calcium 8.0 L Phosphorus 2.7 Magnesium 2.3 Albumin 2.6 L Mycoplasma pneumon IgM 54
[2023-11-22] MEDS: cefTRIAXone 2 GM/NS 100 ML 2 GM/100 ML BAG IVPB (20:17)
[2023-11-22 22:33] LABS: Pneumococcal Antigen Urine Detected (Not Detected)
[2023-11-23] VITALS (20 sets, daily range): BP systolic 91–138; BP diastolic 60–80; PULSE 75–101; RESP 17–20; TEMP 36.3–37.1; O2SAT 90–94
[2023-11-23] MEDS: IPRATROPIUM 0.5 MG/ALBUTEROL SULFATE 2.5 MG AMPUL.NEB 3 ML INHALATION ×4 (02:30→21:26)
[2023-11-23 03:16] LABS: Legionella pneumophila Ag Ur Not Detected (Not Detected)
[2023-11-23 06:32] LABS: Basophils Percent Auto 0.5 % (0.2-1.2); Eosinophils Absolute Auto 0.2 K/mm3 (0-0.3); Eosinophils Percent Auto 1.9 % (0-4.4); Hematocrit 25.1 % (42.0-52.0); Hemoglobin 7.7 g/dL (14.0-18.0); Immature Granulocyte Absolute 0.09 K/mm3 (0.00-0.031); Immature Granulocyte Percent A 1.1 % (0-0.5); Lymphocytes Absolute Auto 1.05 K/mm3 (0.9-3.2); Lymphocytes Percent Auto 13.1 % (18.3-44.2); Mean Corpuscular HGB Conc 30.7 g/dl (32-36); Mean Corpuscular Hemoglobin 28.6 pg (26-34); Mean Corpuscular Volume 93.3 fl (80-100); Mean Platelet Volume 10.8 fl (7.4-10.4); Monocytes Absolute Auto 0.6 K/mm3 (0.1-0.6); Monocytes Percent Auto 7.9 % (2.6-8.5); Neutrophils Percent Auto 75.5 % (45.5-73.1); Platelet Count Result 475 k/mm3 (150-375); Red Blood Count 2.69 M/mm3 (4.6-6.20); Red Cell Distribution Width 16.8 % (11.5-14.5)
[2023-11-23 06:57] LABS: Albumin Level 2.6 g/dL (3.5-5.1); Anion Gap 0 mmol/L (8-16); Blood Urea Nitrogen 8 mg/dL (9-20); CRP 4.1 mg/dL (<1.0); Calcium 8.1 mg/dL (8.4-10.2); Carbon Dioxide 26 mmol/L (22-30); Chloride 110 mmol/L (98-107); Estimated CRCL calculation 69 ml/min; Estimated Glomerular Filt Rate > 60; Glucose 111 mg/dL (65-110); Magnesium 2.2 mg/dL (1.6-2.3); Phosphorus 2.8 mg/dL (2.5-4.5); Potassium 3.9 mmol/L (3.4-5.0); Sodium 136 mmol/L (137-145)
[2023-11-23] MEDS: TAMSULOSIN HCL 0.4 MG CAPSULE BY MOUTH (09:07)
[2023-11-23] MEDS: ENOXAPARIN 40 MG/0.4 ML SYRINGE SUB-Q (09:07)
[2023-11-23] MEDS: OSELTAMIVIR PHOSPHATE 75 MG CAPSULE PO ×2 (09:07→20:38)
[2023-11-23] MEDS: FINASTERIDE 5 MG TABLET PO (09:07)
[2023-11-23] MEDS: ASPIRIN 81 MG ENTERIC TABLET PO (09:08)
[2023-11-23] MEDS: AZITHROMYCIN 500 MG/NS 250 ML 500 MG/250 ML BAG 250 MG IVPB (09:08)
[2023-11-23] MEDS: ATORVASTATIN 40 MG TABLET PO (09:08)
[2023-11-23] MEDS: PANTOPRAZOLE 40 MG TABLET PO (09:08)
[2023-11-23] MEDS: buPROPion HCL XL (24 HR) 150 MG TABCR PO (09:08)
[2023-11-23] MEDS: CLOPIDOGREL BISULFATE 75 MG TABLET PO (09:08)
[2023-11-23] MEDS: DULoxetine HCL 60 MG CAPSULE.DR BY MOUTH (09:08)
--- NOTE | 2023-11-23 11:05 | PCSTNOTE ---
Please refer to the Bedside Swallow Evaluation in the EMR. Please note, silent aspiration cannot be ruled out at bedside.
--- NOTE | 2023-11-23 14:14 | PC.NURSE ---
On 11/23/23, the student, [Coco Patrick], provided care and completed [facility] documentation on this patient. I have reviewed the student's documentation and agree with the findings.
--- NOTE | 2023-11-23 14:29 | PC.NURSE ---
On 11/23/23, the student, [Radha Galindo], provided care and completed [facility] documentation on this patient. I have reviewed the student's documentation and agree with the findings.
--- NOTE | 2023-11-23 14:47 | PM.IMPN ---
Progress Note: A&P Assessment and Plan (1) Pneumonia: Code(s): J18.9 - Pneumonia, unspecified organism Status: Acute Assessment and Plan: Patient presents with weakness. CXR showed unilateral patchy airspace opacities throughout the dependent right lung suggestive of pneumonia. DDimer was positive and CTA chest performed showing no PE but multifocal bronchopneumonia most severe in the right lower lobe, fluid-filled and possibly infected right upper lobe pneumatocele, dependent left lower lobe consolidation (infection or rounded atelectasis), small bilateral pleural effusions and right hilar and mediastinal lymphadenopathy. --CTA chest showing RUL scarring February 2023 He was started on IV antibiotics with ceftriaxone and azithromycin. MRSA nasal swab negative. Influenza B positive. Legionella Ag negative. Pneumococcal Ag POSITIVE. Mycoplasma negative. BCx NGTD. Sputum Cx negative ST did not note any concerns with bedside. No fevers and WBC normal. CRP 4.1 Pulmonary consulted and appreciate their input. Continue Rocephin at 2gm and Azithro Continue bronchodilators (2) Pneumatocele of lung: Code(s): J98.4 - Other disorders of lung Status: Acute Assessment and Plan: Possible infected pneumatocele As above. (3) Influenza B: Code(s): J10.1 - Influenza due to other identified influenza virus with other respiratory manifestations Status: Acute Assessment and Plan: Patient tested positive for Influenza B. Influenza A, RSV and COVID PCR negative Started on Tamiflu Continue supportive care (4) Hypoxia: Code(s): R09.02 - Hypoxemia Status: Acute Assessment and Plan: Related to above Weaned to room air (5) Hypokalemia: Code(s): E87.6 - Hypokalemia Status: Acute Assessment and Plan: Potassium low on admission and was replaced Follow and replace as needed. (6) Normocytic anemia: Code(s): D64.9 - Anemia, unspecified Status: Acute Assessment and Plan: Last Hgb normal at 13.6 in May 2022. Hgb 8.9 on admission and has trended down to 7 range. B12/Folate normal. Stool guaiac negative. Iron normal with TIBC low and normal TSAT. Ferritin elevated as an acute phase reactant Protein/Cr ratio 0.22gm Anemia consistent with anemia of chronic disease. Follow HH and transfuse as needed. Hematolgy consult after discharge. (7) Peripheral vascular disease: Code(s): I73.9 - Peripheral vascular disease, unspecified Status: Acute Assessment and Plan: Patient with known PVD. Continue Lipitor. ASA and Plavix held but now added back Continue PPI (8) Hypertension: Qualifiers: Hypertension type: essential hypertension Qualified Code(s): I10 - Essential (primary) hypertension Code(s): I10 - Essential (primary) hypertension Status: Acute Assessment and Plan: Patient's blood pressure was reviewed on 11/22 Blood pressure was soft so 1L NS given. Not on anti-HTN currently BP improved Will continue to monitor Plan Code status - full DVT prophylaxis with Lovenox Disp - PT/OT Subjective Date/time seen: 11/23/23 14:47 Interval history: 73yo male with CVA, diastolic dysfxn, HTN and Staph PNA with empyema here for weakness SOB better. +BARRIENTOS. Has recurrent right sided chest discomfort (not pain). Cough productive of whitish sputum. Cough more productive. Exam Narrative: AF 98.0 119/77 79 18 91% ra Gen - NARD sitting at the side of the bed Chest - inspiratory and expiratory rhocnhi CV - RRR S1/S2 Abd - Soft, NT/ND, Positive BS Ext - No pedal edema Psych - Nml mood and affect Skin - Warm and dry Objective Data Vital Signs Vital Signs: Vital Signs - 24 hr 11/22/23 16:00 11/22/23 16:10 11/22/23 16:14 Temperature 97.8 F Pulse Rate 84 77 92 Respiratory Rate 18 Blood Pressure 124/62 121/65 119/68 Pulse Oximetry 98 Oxygen Delivery 11/22/23 16:18 11/22/23 20:27 11/22/23 20:28 Temperature Pulse Rate 99 86 86 Respiratory Rate 18 Blood Pressure 128/67 Pulse Oximetry 93 Oxygen Delivery Room Air 11/22/23 20:33 11/22/23 21:14 11/22/23 23:15 Temperature 97.3 F L 97.5 F L Pulse Rate 87 85 84 Respiratory Rate 18 16 18 Blood Pressure 120/71 115/65 Pulse Oximetry 93 91 Oxygen Delivery 11/22/23 23:18 11/22/23 23:22 11/22/23 23:30 Temperature 97.5 F L 97.5 F L 97.5 F L Pulse Rate 96 106 H 84 Respiratory Rate 18 18 18 Blood Pressure 97/70 L 124/67 115/65 Pulse Oximetry 90 92 91 Oxygen Delivery 11/23/23 02:30 11/23/23 02:40 11/23/23 04:21 Temperature 98.8 F Pulse Rate 85 86 84 Respiratory Rate 18 18 18 Blood Pressure 138/69 Pulse Oximetry 90 Oxygen Delivery 11/23/23 08:25 11/23/23 08:56 11/23/23 09:16 Temperature 98 F Pulse Rate 86 94 Respiratory Rate 17 20 Blood Pressure 132/80 Pulse Oximetry 93 Oxygen Delivery Room Air 11/23/23 09:15 11/23/23 09:24 11/23/23 13:26 Temperature Pulse Rate 94 Respiratory Rate 20 Blood Pressure Pulse Oximetry 91 Oxygen Delivery Room Air Room Air 11/23/23 08:00 11/23/23 13:30 11/23/23 13:35 Temperature 97.4 F L Pulse Rate 86 Respiratory Rate 19 Blood Pressure 100/60 100/60 91/70 L Pulse Oximetry 93 Oxygen Delivery 11/23/23 13:40 11/23/23 14:32 11/23/23 14:40 Temperature Pulse Rate 82 79 Respiratory Rate 18 18 Blood Pressure 119/77 Pulse Oximetry Oxygen Delivery Intake/Output Intake/Output: Intake & Output 11/20/23 11/21/23 11/22/23 11/23/23 23:59 23:59 23:59 23:59 Intake Total 840 1390 2592 1064 Output Total 250 650 850 600 Balance 942 571 2011 464 Meds/Results Medications: Active Medications Generic Name Dose Route Start Last Admin Trade Name Maxq PRN Reason Stop Dose Admin Acetaminophen 650 mg 11/19/23 13:21 11/22/23 09:36 Acetaminophen 325 Mg Tablet PO 650 mg Q4H PRN Administration Mild Pain (1-3) or Fever Albuterol/Ipratropium 3 ml 11/19/23 14:00 11/23/23 14:32 Ipratropium 0.5 Mg/Albuterol Sulfate 2.5 Mg Ampul.Neb 3 Ml INHALATION 3 ml Q6HRT MERCEDES Administration Aspirin 81 mg 11/22/23 09:00 11/23/23 09:08 Aspirin 81 Mg Enteric Tablet PO 81 mg DAILY MERCEDES Administration Atorvastatin Calcium 40 mg 11/20/23 09:00 11/23/23 09:08 Atorvastatin 40 Mg Tablet PO 40 mg DAILY MERCEDES Administration Bupropion HCl 150 mg 11/20/23 09:00 11/23/23 09:08 Bupropion Hcl Xl (24 Hr) 150 Mg Tabcr PO 150 mg QAM MERCEDES Administration Clopidogrel Bisulfate 75 mg 11/22/23 09:00 11/23/23 09:08 Clopidogrel Bisulfate 75 Mg Tablet PO 75 mg QAM MERCEDES Administration Duloxetine HCl 60 mg 11/20/23 09:00 11/23/23 09:08 Duloxetine Hcl 60 Mg Capsule.Dr BY MOUTH 60 mg DAILY MERCEDES Administration Enoxaparin Sodium 40 mg 11/21/23 09:00 11/23/23 09:07 Enoxaparin 40 Mg/0.4 Ml Syringe SUB-Q 40 mg DAILY MERCEDES Administration Finasteride 5 mg 11/20/23 09:00 11/23/23 09:07 Finasteride 5 Mg Tablet PO 5 mg DAILY MERCEDES Administration Azithromycin 500 mg in 250 mls @ 250 mls/hr 11/20/23 09:00 11/23/23 10:08 Zithromax IVPB Infused Q24H MERCEDES Infusion Ceftriaxone Sodium 2 gm in 100 mls @ 200 mls/hr 11/22/23 21:00 11/22/23 20:47 Rocephin 2 Gm/Ns 100 Ml IVPB Infused Q24H [facility] Infusion Ondansetron HCl 4 mg 11/19/23 13:21 Ondansetron Inj 4 Mg/2 Ml Vial IV PUSH Q4H PRN Nausea Oseltamivir Phosphate 75 mg 11/19/23 21:00 11/23/23 09:07 Oseltamivir Phosphate 75 Mg Capsule PO 11/24/23 20:59 75 mg Q12HR MERCEDES Administration Pantoprazole Sodium 40 mg 11/20/23 09:00 11/23/23 09:08 Pantoprazole 40 Mg Tablet PO 40 mg QAM MERCEDES Administration Tamsulosin HCl 0.4 mg 11/20/23 09:00 11/23/23 09:07 Tamsulosin Hcl 0.4 Mg Capsule BY MOUTH 0.4 mg DAILY MERCEDES Administration Radiology Results: ITS Impressions Chest X-Ray 11/19/23 12:19 IMPRESSION: 1. Unilateral patchy airspace opacities throughout the dependent right lung which is concerning for pneumonia. Chest CTA 11/20/23 21:51 IMPRESSION: No CT evidence of acute pulmonary embolus. Multifocal bronchopneumonia, most severe in the right lower lobe. Fluid-filled, possibly infected right upper lobe pneumatocele. Dependent left lower lobe consolidation may represent an additional site of infection or rounded atelectasis. Small bilateral pleural effusions. Right hilar and mediastinal lymphadenopathy. Labs Labs: Laboratory Results - last 24 hr 11/20/23 11/23/23 00:34 06:02 WBC 8.0 RBC 2.69 L Hgb 7.7 L Hct 25.1 L MCV 93.3 MCH 28.6 MCHC 30.7 L RDW 16.8 H Plt Count 475 H MPV 10.8 H Immature Gran % (Auto) 1.1 H Neut % (Auto) 75.5 H Lymph % (Auto) 13.1 L Harper % (Auto) 7.9 Eos % (Auto) 1.9 Baso % (Auto) 0.5 Lymph # (Auto) 1.05 Harper # (Auto) 0.6 Eos # (Auto) 0.2 Baso # (Auto) 0.0 Abs Immat Gran (auto) 0.09 H Absolute Neuts (auto) 6.0 Absolute Nucleated RBC 0.000 Nucleated RBC % 0.0 Sodium 136 L Potassium 3.9 Chloride 110 H Carbon Dioxide 26 Anion Gap 0 L BUN 8 L Creatinine 0.90 Estim Creat Clear Calc 69 Estimated GFR > 60 Glucose 111 H Calcium 8.1 L Phosphorus 2.8 Magnesium 2.2 C-Reactive Protein 4.1 H Albumin 2.6 L Ur L.pneumophila Ag Not detected Urine Pneumococcal Ag Detected A
[2023-11-23] MEDS: cefTRIAXone 2 GM/NS 100 ML 2 GM/100 ML BAG IVPB (20:38)
[2023-11-24 03:14] VITALS: PULSE 79; RESP 18
[2023-11-24 04:48] VITALS: BP 131/65; PULSE 87; RESP 18; TEMP 36.4; O2SAT 95
[2023-11-24 05:42] LABS: Hematocrit 24.4 % (42.0-52.0); Hemoglobin 7.5 g/dL (14.0-18.0); Mean Corpuscular HGB Conc 30.7 g/dl (32-36); Mean Corpuscular Hemoglobin 28.7 pg (26-34); Mean Corpuscular Volume 93.5 fl (80-100); Mean Platelet Volume 10.3 fl (7.4-10.4); Platelet Count Result 501 k/mm3 (150-375); Red Blood Count 2.61 M/mm3 (4.6-6.20); Red Cell Distribution Width 17.2 % (11.5-14.5); White Blood Count 6.4 K/mm3 (4.5-10.0)
[2023-11-24 06:00] LABS: Anion Gap 1 mmol/L (8-16); Blood Urea Nitrogen 9 mg/dL (9-20); CRP 3.4 mg/dL (<1.0); Calcium 8.3 mg/dL (8.4-10.2); Carbon Dioxide 24 mmol/L (22-30); Chloride 111 mmol/L (98-107); Estimated CRCL calculation 63 ml/min; Estimated Glomerular Filt Rate > 60; Glucose 107 mg/dL (65-110); Potassium 3.9 mmol/L (3.4-5.0); Sodium 136 mmol/L (137-145)
[2023-11-24 07:34] VITALS: PULSE 80; RESP 18; O2SAT 92
[2023-11-24] MEDS: IPRATROPIUM 0.5 MG/ALBUTEROL SULFATE 2.5 MG AMPUL.NEB 3 ML INHALATION ×2 (07:34→13:30)
[2023-11-24 07:44] VITALS: PULSE 81; RESP 18
[2023-11-24] MEDS: ATORVASTATIN 40 MG TABLET PO (09:08)
[2023-11-24] MEDS: ASPIRIN 81 MG ENTERIC TABLET PO (09:08)
[2023-11-24] MEDS: buPROPion HCL XL (24 HR) 150 MG TABCR PO (09:08)
[2023-11-24] MEDS: DULoxetine HCL 60 MG CAPSULE.DR BY MOUTH (09:08)
[2023-11-24] MEDS: FINASTERIDE 5 MG TABLET PO (09:08)
[2023-11-24] MEDS: CLOPIDOGREL BISULFATE 75 MG TABLET PO (09:08)
[2023-11-24] MEDS: ENOXAPARIN 40 MG/0.4 ML SYRINGE SUB-Q (09:09)
[2023-11-24] MEDS: AZITHROMYCIN 500 MG/NS 250 ML 500 MG/250 ML BAG 250 MG IVPB (09:09)
[2023-11-24] MEDS: OSELTAMIVIR PHOSPHATE 75 MG CAPSULE PO (09:09)
[2023-11-24] MEDS: PANTOPRAZOLE 40 MG TABLET PO (09:10)
[2023-11-24] MEDS: TAMSULOSIN HCL 0.4 MG CAPSULE BY MOUTH (09:10)
--- NOTE | 2023-11-24 11:12 | PM.PNPUL ---
Progress Note: A&P Assessment and Plan (1) Pneumonia: Code(s): J18.9 - Pneumonia, unspecified organism Status: Acute Assessment and Plan: Patient with influenza B and superimposed pneumococcal pneumonia. Patient has bilateral dense consolidations and a possible infected pneumatocele in the right upper lobe. 11/24/23: Patient states he is breathing 88 85% back to his normal. He denies fever. Cough is improved 75% back to his normal. He is on room air with saturations 95%. White blood cell count 6.4. Creatinine 1.0. Patient is afebrile. Chest x-ray shows no worsening of his right-sided infiltrates. I will treat for a possible infected pneumatocele and continue oral antibiotics for total of 3 weeks. Plan: From a pulmonary perspective patient is ready to be discharged on these pulmonary medications: Augmentin 875-125 at 1 tablet p.o. b.i.d. times 15 days. Rescue albuterol 2 puffs q.4 hours p.r.n. shortness of breath and wheezing. follow-up in the Pulmonary [facility] in 3-4 weeks. I have given him our business card and informed our central stores attendant. patient will need an outpatient CT scan in about 6 weeks to follow up his infiltrates and pneumatocele. Discussed with Dr. Graves, will sign off, call with questions (2) Influenza B: Code(s): J10.1 - Influenza due to other identified influenza virus with other respiratory manifestations Status: Acute Assessment and Plan: 11/24/23: Patient continues to improve and is near his baseline. He has been walking in the room with no issues. Patient continues on Tamiflu started on 11/19/2023. Will continue for 5 days and this DC. Subjective Date/time seen: 11/24/23 11:12 Interval history: Consult date: 11/22/23 Influenza B/Pneumonia/Sepsis/Hypoxia Narrative: November 22, 2023 @ 10:30 am Room 253 NEW:?Reese Lynch is a 73-yo man never smoker admitted with shortness of breath and weakness, arrived by ambulance from a [employer], found in the tripod position, saturation in the low 80s. He deteriorated when he went from inside the store into the cold air on Nov 18. .? BP was 61/27. In the ED, still was hypotensive 89/62 which corrected with IV fluids in the emergency department.? He had an elevated white blood cell count of 16.1 lactic acid was elevated 2.6 and his influenza B swab was positive.? He had a dense infiltrate in the right lower lobe and possible pneumatocele in RUL.? Was started on empiric antibiotics azithromycin and ceftriaxone. He was not feeling well since November 08 when he worked on his 20 year old [employer], ? Trying to replace the starter.? He was cold outside, was lying on the ground, under the car, on his back, feeling cold weather and not enough clothing. ? He developed cold feeling in the right hand, coughing, shortness of breath which worsened over days; additional symptoms included nasal congestion,? sniffles, cough without sputum, a sore throat, decreased intake mainly only taking in fluids.? He had loose dark stools.? He he had increasing shortness of breath and chest pain in the right upper chest with taking a breath in.? He described it as a burning sensation with sharp pain throughout his ribs.? No fever, no headache, he had some minimal swelling of the left ankle.? He did not have calf swelling.? Patient has never smoked, has no underlying history of lung disease.? He has not had a productive cough.? The patient has no history of asthma, inhalers, travel, no exposure to sick individuals. 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 PMH: HTN,? stroke, (R) carotid endarterectomy, peripheral arterial disease, hyperlipidemia.? Takes Flomax 11/24/23: Patient states he is breathing 88 85% back to his normal. He denies fever. Cough is improved 75% back to his normal. He is on room air with saturations 95%. White blood cell count 6.4. Creatinine 1.0. Patient is afebrile. Chest x-ray shows no worsening of his right-sided infiltrates. DATA * 11/21/2023- IMPRESSION: No CT evidence of acute pulmonary embolus. Multifocal bronchopneumonia, most severe in the right lower lobe. Fluid-filled, possibly infected right upper lobe pneumatocele. Dependent left lower lobe consolidation may represent an additional site of infection or rounded atelectasis. Small bilateral pleural effusions. Right hilar and mediastinal lymphadenopathy.This is a outbound sales representative slice RUL; it is really dense, extensive. Review of Systems Constitutional: Constitutional: Reports no additional constitutional complaints Eyes: Eyes: Reports no additional eye complaints ENT: Reports system reviewed and no additional complaints, except as documented Cardiovascular: Cardiovascular: Reports no additional cardiovascular complaints Respiratory: Respiratory: Reports no additional respiratory complaints Gastrointestinal: Gastrointestinal: Reports no additional gastrointestinal complaints Musculoskeletal: Musculoskeletal: Reports no additional musculoskeletal complaints Neurologic: Reports system reviewed and no additional complaints, except as documented Psychiatric: Psychiatric: Reports no additional psychiatric complaints Endocrine: Endocrine: Reports no additional endocrine complaints Hematologic/Lymphatic: Hematologic/Lymphatic: Reports no additional hematologic/lymphatic complaints Allergic/Immunologic: Allergic/Immunologic: Reports no additional allergic/immunologic complaints Exam Const: General: cooperative, healthy appearing and comfortable Orientation/consciousness: oriented to person, oriented to place and oriented to time HENMT: Head: normal to inspection Ears: hearing grossly normal bilaterally Eyes: General: appearance normal, both eyes and all related structures Neck: Neck: normal visual inspection Chest: Chest palpation & inspection: normal inspection of the chest Resp: Effort & Inspection: normal respiratory effort and able to speak in complete sentences Auscultation: crackles, no rales, no rhonchi, no wheezes and diminished lung sounds Other: no wheezes, crackles and right Cardio: Jugular venous distension: no JVD GI: Inspection: normal to inspection GI Palp: No abdominal tenderness Skin: General skin exam: normal color Neuro: General: oriented to person, oriented to place and oriented to time Extrem: General: normal to inspection Psych: Appearance: grossly normal Objective Data Vital Signs Vital Signs: Vital Signs - 24 hr 11/23/23 13:26 11/23/23 13:30 11/23/23 13:35 Temperature Pulse Rate Respiratory Rate Blood Pressure 100/60 91/70 L Pulse Oximetry Oxygen Delivery Room Air Fraction of Inspired Oxygen 11/23/23 13:40 11/23/23 14:32 11/23/23 14:40 Temperature Pulse Rate 82 79 Respiratory Rate 18 18 Blood Pressure 119/77 Pulse Oximetry Oxygen Delivery Fraction of Inspired Oxygen 11/23/23 16:00 11/23/23 19:20 11/23/23 19:23 Temperature 36.5 C 37.1 C 37.1 C Pulse Rate 84 88 88 Respiratory Rate 18 18 18 Blood Pressure 128/72 123/63 98/69 L Pulse Oximetry 93 91 93 Oxygen Delivery Fraction of Inspired Oxygen 11/23/23 19:26 11/23/23 20:00 11/23/23 21:26 Temperature 37.1 C Pulse Rate 101 H 101 H 75 Respiratory Rate 18 18 18 Blood Pressure 105/61 Pulse Oximetry 94 94 Oxygen Delivery Room Air Fraction of Inspired Oxygen 11/23/23 21:40 11/24/23 03:14 11/24/23 04:48 Temperature 36.4 C L Pulse Rate 77 79 87 Respiratory Rate 18 18 18 Blood Pressure 131/65 Pulse Oximetry 95 Oxygen Delivery Fraction of Inspired Oxygen 11/24/23 07:34 11/24/23 07:34 11/24/23 07:44 Temperature Pulse Rate 80 81 Respiratory Rate 18 18 Blood Pressure Pulse Oximetry 92 Oxygen Delivery Room Air Fraction of Inspired Oxygen 11/24/23 09:00 Temperature Pulse Rate Respiratory Rate Blood Pressure Pulse Oximetry Oxygen Delivery Room Air Fraction of Inspired Oxygen Intake/Output Intake/Output: Intake & Output 11/21/23 11/22/23 11/23/23 11/24/23 23:59 23:59 23:59 23:59 Intake Total 1390 2592 1834 250 Output Total 650 850 900 700 Balance 740 1742 934 450 Meds/Results Medications: Active Medications Generic Name Dose Route Start Last Admin Trade Name Freq PRN Reason Stop Dose Admin Acetaminophen 650 mg 11/19/23 13:21 11/22/23 09:36 Acetaminophen 325 Mg Tablet PO 650 mg Q4H PRN Administration Mild Pain (1-3) or Fever Albuterol/Ipratropium 3 ml 11/19/23 14:00 11/24/23 07:34 Ipratropium 0.5 Mg/Albuterol Sulfate 2.5 Mg Ampul.Neb 3 Ml INHALATION 3 ml Q6HRT MERCEDES Administration Aspirin 81 mg 11/22/23 09:00 11/24/23 09:08 Aspirin 81 Mg Enteric Tablet PO 81 mg DAILY MERCEDES Administration Atorvastatin Calcium 40 mg 11/20/23 09:00 11/24/23 09:08 Atorvastatin 40 Mg Tablet PO 40 mg DAILY MERCEDES Administration Bupropion HCl 150 mg 11/20/23 09:00 11/24/23 09:08 Bupropion Hcl Xl (24 Hr) 150 Mg Tabcr PO 150 mg QAM MERCEDES Administration Clopidogrel Bisulfate 75 mg 11/22/23 09:00 11/24/23 09:08 Clopidogrel Bisulfate 75 Mg Tablet PO 75 mg QAM MERCEDES Administration Duloxetine HCl 60 mg 11/20/23 09:00 11/24/23 09:08 Duloxetine Hcl 60 Mg Capsule.Dr BY MOUTH 60 mg DAILY MERCEDES Administration Enoxaparin Sodium 40 mg 11/21/23 09:00 11/24/23 09:09 Enoxaparin 40 Mg/0.4 Ml Syringe SUB-Q 40 mg DAILY MERCEDES Administration Finasteride 5 mg 11/20/23 09:00 11/24/23 09:08 Finasteride 5 Mg Tablet PO 5 mg DAILY MERCEDES Administration Azithromycin 500 mg in 250 mls @ 250 mls/hr 11/20/23 09:00 11/24/23 09:09 Zithromax IVPB 250 mls/hr Q24H MERCEDES Administration Ceftriaxone Sodium 2 gm in 100 mls @ 200 mls/hr 11/22/23 21:00 11/23/23 21:08 Rocephin 2 Gm/Ns 100 Ml IVPB Infused Q24H MERCEDES Infusion Ondansetron HCl 4 mg 11/19/23 13:21 Ondansetron Inj 4 Mg/2 Ml Vial IV PUSH Q4H PRN Nausea Oseltamivir Phosphate 75 mg 11/19/23 21:00 11/24/23 09:09 Oseltamivir Phosphate 75 Mg Capsule PO 11/24/23 20:59 75 mg Q12HR MERCEDES Administration Pantoprazole Sodium 40 mg 11/20/23 09:00 11/24/23 09:10 Pantoprazole 40 Mg Tablet PO 40 mg QAM MERCEDES Administration Tamsulosin HCl 0.4 mg 11/20/23 09:00 11/24/23 09:10 Tamsulosin Hcl 0.4 Mg Capsule BY MOUTH 0.4 mg DAILY MERCEDES Administration Radiology Results: ITS Impressions Chest CTA 11/20/23 21:51 IMPRESSION: No CT evidence of acute pulmonary embolus. Multifocal bronchopneumonia, most severe in the right lower lobe. Fluid-filled, possibly infected right upper lobe pneumatocele. Dependent left lower lobe consolidation may represent an additional site of infection or rounded atelectasis. Small bilateral pleural effusions. Right hilar and mediastinal lymphadenopathy. Chest X-Ray 11/24/23 09:31 IMPRESSION: 1. Persistent patchy airspace opacity throughout the right lung and more focally in the left upper and left lower lung zones consistent with multifocal pneumonia. 2. Small right pleural effusion. Labs Labs: Laboratory Results - last 24 hr 11/24/23 05:29 WBC 6.4 RBC 2.61 L Hgb 7.5 L Hct 24.4 L MCV 93.5 MCH 28.7 MCHC 30.7 L RDW 17.2 H Plt Count 501 H MPV 10.3 Sodium 136 L Potassium 3.9 Chloride 111 H Carbon Dioxide 24 Anion Gap 1 L BUN 9 Creatinine 1.00 Estim Creat Clear Calc 63 Estimated GFR > 60 Glucose 107 Calcium 8.3 L C-Reactive Protein 3.4 H Amg Follow-up [facility]illing [facility] Follow-up Hospital Follow-up: [id number] [facility] Mod
[2023-11-24 13:32] VITALS: PULSE 87; RESP 18
--- NOTE | 2023-11-24 13:44 | PM.DS ---
DS: Admitting Diagnosis Discharge Date 11/24/23 Admitting Diagnosis Weakness DS: Discharge Diagnosis Discharge Diagnosis (1) Pneumonia: Code(s): J18.9 - Pneumonia, unspecified organism Status: Acute (2) Pneumatocele of lung: Code(s): J98.4 - Other disorders of lung Status: Acute (3) Influenza B: Code(s): J10.1 - Influenza due to other identified influenza virus with other respiratory manifestations Status: Acute (4) Hypoxia: Code(s): R09.02 - Hypoxemia Status: Acute (5) Hypokalemia: Code(s): E87.6 - Hypokalemia Status: Acute (6) Normocytic anemia: Code(s): D64.9 - Anemia, unspecified Status: Acute (7) Peripheral vascular disease: Code(s): I73.9 - Peripheral vascular disease, unspecified Status: Acute (8) Hypertension: Qualifiers: Hypertension type: essential hypertension Qualified Code(s): I10 - Essential (primary) hypertension Code(s): I10 - Essential (primary) hypertension Status: Acute DS: Summary Hospital Course Reason for hospitalization: 73yo male with CVA, diastolic dysfxn, HTN and Staph PNA with empyema here for weakness. Please see H&P for details. Hospital Course: Patient presents with weakness. CXR showed unilateral patchy airspace opacities throughout the dependent right lung suggestive of pneumonia.? DDimer was positive and CTA chest performed showing no PE but showing multifocal bronchopneumonia most severe in the right lower lobe, fluid-filled and possibly infected right upper lobe pneumatocele, dependent left lower lobe consolidation (infection or rounded atelectasis), small bilateral pleural effusions and right hilar and mediastinal lymphadenopathy. A CTA chest showed RUL scarring February 2023. He was started on IV antibiotics with ceftriaxone and azithromycin.?MRSA nasal swab negative. Legionella Ag negative. Pneumococcal Ag POSITIVE. Mycoplasma negative. BCx NGTD.?Sputum Cx negative. Speech Therapy did not note any concerns with bedside swallow study. No fevers and WBC normalized.?He was weaned off oxygen. CRP 4.1 and trended down. Pulmonary consulted and appreciate their input. Repeat CXR continues to show patchy airspace disease but change. Patient tested positive for Influenza B.? Influenza A, RSV and COVID PCR negative. He was started on Tamiflu and completed a course. Patient with normocytic anemia noted on admission. Last Hgb normal at 13.6 in May 2022. Hgb 8.9 on admission and has trended down to 7 range. B12/Folate normal. Stool guaiac negative. Iron normal with TIBC low and normal TSAT. Ferritin elevated as an acute phase reactant. Protein/Cr ratio 0.22. Anemia consistent with anemia of chronic disease. Plan for Hematology consult after discharge. Patient with known PVD. We continued Lipitor. ASA and Plavix were held but now added back. We continued PPI. Patient was up ambulating with issues. He overall did well and was able to be discharged home on 11/23 Status at Discharge Cognitive/behavioral status at discharge: stable Time Spent with Patient Time attestation: Total time spent providing and/or coordinating discharge services: 38 minutes Time spent: Less than 30 minutes Specific discharge activities: discussed with Pulmonology Exam Narrative: AF 97.5 131/65 85 18 92% ra Gen - NARD sitting at the side of the bed Chest - inspiratory and expiratory rhonchi mostly right sided. CV - RRR S1/S2 Abd - Soft, NT/ND, Positive BS Ext - No pedal edema Psych - Nml mood and affect Skin - Warm and dry DS: Data Data Completed and Pending Labs on day of discharge: Labs from last 24 hours 11/24/23 05:29 WBC 6.4 RBC 2.61 L Hgb 7.5 L Hct 24.4 L MCV 93.5 MCH 28.7 MCHC 30.7 L RDW 17.2 H Plt Count 501 H MPV 10.3 Sodium 136 L Potassium 3.9 Chloride 111 H Carbon Dioxide 24 Anion Gap 1 L BUN 9 Creatinine 1.00 Estim Creat Clear Calc 63 Estimated GFR > 60 Glucose 107 Calcium 8.3 L C-Reactive Protein 3.4 H Preliminary micro results at discharge 11/19/23 11:57 Blood Culture - Preliminary Blood 11/19/23 12:27 Blood Culture - Preliminary Blood Discharge Plan Discharge Attending physician on discharge: Marvel Graves Consulting providers: Rajendra Rico Discharging Clinician: Marvel Graves Anticipated Discharge Date/Time: 11/24/23 13:55 Patient Disposition: Home, Self-Care Activity: as tolerated Diet: heart healthy Discharge Instructions: Check blood pressure 1 to 2 times a day. Record and bring into your doctor for review. Call your doctor if your blood pressure is greater than 180/110 or less than 90/45. Please complete your antibiotic course even if you are starting to feel well. Take precautions to avoid falls. Rise slowly from a lying or sitting position. Pause before standing or walking. Walk with walker as needed Contact your doctor or call 911 and come to the Emergency Room if you have increasing shortness of breath, fever or other worrisome symptoms. Avoid NSAIDs (ibuprofen, naproxen, Aleve). Tylenol is safe to take. Follow-up with your primary care provider in 1-2 weeks. Please call for appointment. Follow-up with Pulmonology in 4 weeks. Thank you for using [facility] for your health care needs. Patient Instructions: Antibiotic Form Stand Alone Forms: General Discharge Information Follow-up/Referrals: Artie Palencia MD [Primary Care Provider] - Call for Appointment Rajendra Rico MD [Physician] - Call for Appointment Discharge Medications: New amoxicillin-pot clavulanate 875-125 mg tablet 1 tablet PO Q12H 16 Days Qty: 32 0RF Continued aspirin 81 mg tablet,delayed release (DR/EC) 81 mg PO DAILY atorvastatin [Lipitor] 40 mg tablet 40 mg PO DAILY 30 Days Qty: 90 2RF pantoprazole 40 mg tablet,delayed release (DR/EC) 40 mg PO QAM 30 Days Qty: 90 2RF finasteride 5 mg tablet 5 mg PO DAILY Qty: 90 2RF clopidogrel 75 mg tablet 75 mg PO QAM Qty: 90 2RF tamsulosin 0.4 mg capsule See Rx Instructions .ROUTE .COMPLEX Qty: 90 2RF Dose Instruction: TAKE 1 CAPSULE BY MOUTH EVERY DAY Rx Instructions: TAKE 1 CAPSULE BY MOUTH EVERY DAY duloxetine 60 mg capsule,delayed release(DR/EC) See Rx Instructions .ROUTE .COMPLEX Qty: 90 2RF Dose Instruction: TAKE 1 CAPSULE BY MOUTH EVERY DAY Rx Instructions: TAKE 1 CAPSULE BY MOUTH EVERY DAY bupropion HCl 150 mg tablet extended release 24 hr 150 mg PO QAM Qty: 90 1RF Held amlodipine 10 mg tablet 10 mg PO DAILY Qty: 90 1RF Discontinued diclofenac sodium 75 mg tablet,delayed release (DR/EC) See Rx Instructions .ROUTE .COMPLEX Qty: 60 2RF Dose Instruction: TAKE 1 TABLET BY MOUTH TWICE A DAY NEEDED FOR PAIN Rx Instructions: TAKE 1 TABLET BY MOUTH TWICE A DAY NEEDED FOR PAIN Date of admission: 11/19/23 14:27 Primary Care Provider: Artie Palencia Admitting Provider: Tess Ley Attending physician on admission: Tess Ley Condition: Stable
[2023-11-24 13:48] VITALS: PULSE 85; RESP 18
[2023-11-25 15:33] LABS: Pneumococcal Antigen Urine Detected (Not Detected)
[2023-11-26 02:56] LABS: Legionella pneumophila Ag Ur Not Detected (Not Detected)
== END 2023-11-24 15:00 | disposition home or self-care (01) | DRG 195 ==
LOC: ANHED 12:17 → ANHIMU 14:09 → ANH2MED 11-20 16:30
PROVIDERS: Internal Medicine; Internal Medicine Critical Care Medicine; Physician Assistant; Admitting Provider Student in an Organized Health Care Education/Training Program; Emergency Provider Emergency Medicine; PCP Family Medicine; Visit Provider Internal Medicine
DX: J11.08 Influenza due to unidentified influenza virus with specified pneumonia (principal); J13 Pneumonia due to Streptococcus pneumoniae; J98.4 Other disorders of lung; D63.8 Anemia in other chronic diseases classified elsewhere; E87.6 Hypokalemia; E78.5 Hyperlipidemia, unspecified; F41.9 Anxiety disorder, unspecified; F32.A Depression, unspecified; I73.9 Peripheral vascular disease, unspecified; I11.9 Hypertensive heart disease without heart failure; I25.10 Atherosclerotic heart disease of native coronary artery without angina pectoris; K21.9 Gastro-esophageal reflux disease without esophagitis; N40.0 Benign prostatic hyperplasia without lower urinary tract symptoms; Z86.73 Personal history of transient ischemic attack (TIA), and cerebral infarction without residual deficits; Z20.822 Contact with and (suspected) exposure to COVID-19; Z28.21 Immunization not carried out because of patient refusal; Z79.82 Long term (current) use of aspirin; Z79.02 Long term (current) use of antithrombotics/antiplatelets
CPT/HCPCS: 36415; 71045; 71046; 71275; 80048; 80053; 80069; 82274; 82570; 82607; 82728; 82746; 83540; 83550; 83605; 83735; 84145; 84156; 84443; 85014; 85018; 85025; 85027; 85380; 85610; 85730; 86140; 86738; 86850; 86900; 86901; 87040; 87070; 87205; 87449; 87637; 87641; 87899; 92610; 93005; 94640; 96361; 96365; 96367; 97161; 97165; 99285; A9270; G0378; J0456; J0696; J1650; J7030; J7120; Q9967

== ENCOUNTER 2023-12-06 14:27 | Outpatient (CLI) | payer OTHER, SELFPAY ==
--- NOTE | ~2023-12-06 | XR_ITS ---
EXAMINATION: XR chest 2V Exam Date/Time: 12/06/2023 14:50 CDT HISTORY: J18.9 - Pneumonia, unspecified organism Comparison: 11/24/2023; CTPA 11/20/2023. RESULT: Lines, tubes, and devices: None. Lungs and pleura: Decreasing right lung airspace disease with more nodular appearing opacities in th e peripheral upper, mid, and lower lung. Decreasing multifocal airspace disease in the right lung. De creasing pleural effusions. Cardiomediastinal silhouette: Stable. Other: No acute osseous or upper abdominal finding. IMPRESSION: Improving multifocal pneumonia and pleural effusions. Recommend continued radiographic follow-up to d emonstrate resolution. Reviewed, dictated and finalized at location K. IMPRESSION: Improving multifocal pneumonia and pleural effusions. Recommend continued radio graphic follow-up to demonstrate resolution.
[2023-12-06 15:29] LABS: Alanine Aminotransferase 13 U/L (6-50); Albumin Level 3.8 g/dL (3.5-5.1); Alkaline Phosphatase 96 U/L (38-126); Anion Gap 7 mmol/L (4-12); Aspartate Amino Transferase 27 U/L (17-59); Bilirubin,Total 0.8 mg/dL (0.2-1.3); Blood Urea Nitrogen 25 mg/dL (9-20); Calcium 9.5 mg/dL (8.4-10.2); Carbon Dioxide 25 mmol/L (22-30); Chloride 107 mmol/L (98-107); Estimated Glomerular Filt Rate 37; Glucose 114 mg/dL (65-110); Potassium 4.4 mmol/L (3.4-5.0); Sodium 139 mmol/L (137-145)
[2023-12-06 15:31] LABS: Basophils Absolute Auto 0.1 K/mm3 (0.0-0.1); Basophils Percent Auto 0.6 % (0.2-1.2); Eosinophils Absolute Auto 0.4 K/mm3 (0-0.3); Eosinophils Percent Auto 3.6 % (0-4.4); Immature Granulocyte Absolute 0.03 K/mm3 (0.00-0.031); Immature Granulocyte Percent A 0.3 % (0-0.5); Lymphocytes Percent Auto 12.5 % (18.3-44.2); Mean Corpuscular HGB Conc 29.7 g/dl (32-36); Mean Corpuscular Hemoglobin 28.5 pg (26-34); Mean Corpuscular Volume 95.9 fl (80-100); Mean Platelet Volume 9.6 fl (7.4-10.4); Monocytes Absolute Auto 0.7 K/mm3 (0.1-0.6); Monocytes Percent Auto 6.6 % (2.6-8.5); Neutrophils Percent Auto 76.4 % (45.5-73.1); Platelet Count Result 575 k/mm3 (150-375); Red Blood Count 3.86 M/mm3 (4.6-6.20); Red Cell Distribution Width 16.2 % (11.5-14.5); White Blood Count 10.4 K/mm3 (4.5-10.0)
[2023-12-06 15:51] LABS: Anisocytosis 1+; Hypochromasia 1+; Ovalocytes 1+; Platelet Estimate Increased (Adequate); Schistocytes None Seen
== END 2023-12-06 14:28 | disposition home or self-care (01) ==
PROVIDERS: PCP Family Medicine; Visit Provider Physician Assistant
DX: E87.6 Hypokalemia (principal); D64.9 Anemia, unspecified; J18.9 Pneumonia, unspecified organism
CPT/HCPCS: 36415; 71046; 80053; 85025

== ENCOUNTER 2023-12-06 15:07 | Emergency (ER) | payer OTHER, SELFPAY ==
[2023-12-06 15:12] VITALS: BP 95/80; PULSE 92; RESP 19; TEMP 36.7; O2SAT 98
[2023-12-06 15:18] VITALS: PULSE 91; RESP 36; O2SAT 96
--- NOTE | 2023-12-06 15:19 | ECG_ITS ---
Measurements Intervals [place] Rate: 79 P: 38 ND: 157 QRS: -6 QRSD: 88 T: 58 QT: 387 QTc: 445 Interpretive Statements SINUS RHYTHM BASELINE WANDER- V5 NORMAL ECG COMPARED TO ECG 11/19/2023 11:35:21 NO SIGNIFICANT CHANGES Electronically Signed On 12-06-2023 15:46:50 CDT by Robert Jensen D.O.
[2023-12-06 15:30] VITALS: BP 91/61; PULSE 79; RESP 13; O2SAT 97
[2023-12-06 15:31] VITALS: PULSE 78; RESP 14; O2SAT 97
[2023-12-06 16:00] VITALS: BP 94/63; PULSE 75; RESP 15; O2SAT 97
--- NOTE | 2023-12-06 17:56 | ED.DIZZY ---
HPI - Dizziness General Chief Complaint: Dizziness Stated Complaint: dizzy, n/v Time Seen by Provider: 12/06/23 17:45 History of Present Illness HPI Narrative: 73-year-old male present to the emergency department for evaluation of low blood pressure. Patient was having a repeat chest x-ray today when he had onset of dizziness with nausea and vomiting and patient was found to be hypotensive. At time of evaluation patient denies any complaints and is emphatic about being discharged to home. Related Data Home Medications Medication Instructions Recorded Confirmed aspirin 81 mg tablet,delayed 81 mg PO DAILY 10/21/19 11/19/23 release Allergies Allergy/AdvReac Type Severity Reaction Status Date / Time amitriptyline AdvReac Mild Confusion Verified 12/06/23 15:20 Review of Systems Review of Systems: All systems reviewed & are unremarkable except as noted in HPI and below PMFSH Past Medical History Medical History Anemia Anxiety Benign prostatic hyperplasia Carotid artery disease Status post right carotid endarterectomy. Left carotid bulb moderate plaque and 45% stenosis on CTA of the head and neck dated 11/29/2020. Cerebrovascular accident (07/2016) Attributed to carotid artery disease. Status post right carotid endarterectomy. Depression Diastolic dysfunction Echocardiogram in July 2016 showed normal left ventricular systolic function, mild LVH, and grade 1 diastolic dysfunction with an ejection fraction of 60%. Gastroesophageal reflux disease History of kidney stones History of staph infection (2009) Staph pneumonia, possible empyema. Hyperlipidemia Hypertension Peripheral vascular disease Spinal stenosis Surgical History Surgical History History of arthroscopy of right knee History of bilateral carpal tunnel release History of right-sided carotid endarterectomy History of spinal surgery Family History Family History Mother Hypertension Social History Social History Social History: Surrogate decision maker: Juliette Javed, daughter. Code status: Full code. Smoking status: Never smoker Second hand tobacco smoke exposure: No Alcohol intake: never Substance use: never Substance use type: marijuana Do You Feel Safe in your Home?: Yes Lack of Transportation: No Lack of Food: Never True Current Housing: I Have Housing Concerned About Future Housing: No Difficulty Paying Gas/Electric Bills: No Difficulty Paying for Meds: No Currently Unemployed: No Education: Grade School Difficulty w/ Childcare or Family Care: No Living arrangements: with family Additional living arrangements comments: Lives in [place]. One son lives at home with him. 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 Spiritual care concerns: No Exam Narrative: APPEARANCE: Well appearing, no pain, no distress, well-nourished. HEAD: normocephalic, atraumatic. EYES: PERRLA/EOMI, conjunctivae clear. NOSE: Normal no drainage NECK: Supple. No adenopathy, no masses. RESPIRATORY: Airway patent, respirations nonlabored. Clear to auscultation bilaterally, no rales, rhonchi, wheezing. CARDIOVASCULAR: Regular rate and rhythm without murmurs rubs or gallops. ABDOMINAL: Soft, nontender, nondistended, normal bowel sounds MUSCULOSKELETAL: Moves all extremities. Strength/ROM intact, No edema, No calf tenderness. NEURO: Alert. Cranial nerves II through XII intact. Grossly intact SKIN: Warm, dry. Normal Color Course Vital Signs Vital signs: Vital Signs Temperature 98.0 F 12/06/23 15:12 Pulse Rate 92 12/06/23 15:12 Respiratory Rate 19 12/06/23 15:12 Blood Pressure 95/80 L 12/06/23 15:12 Pul
== END 2023-12-06 18:04 | disposition left against medical advice (07) ==
LOC: ANHED 18:19
PROVIDERS: Emergency Provider Emergency Medicine; PCP Family Medicine
DX: R42 Dizziness and giddiness (principal); I25.10 Atherosclerotic heart disease of native coronary artery without angina pectoris; I10 Essential (primary) hypertension; I73.9 Peripheral vascular disease, unspecified; E78.5 Hyperlipidemia, unspecified; N40.0 Benign prostatic hyperplasia without lower urinary tract symptoms; K21.9 Gastro-esophageal reflux disease without esophagitis; Z86.73 Personal history of transient ischemic attack (TIA), and cerebral infarction without residual deficits; Z87.442 Personal history of urinary calculi; Z87.01 Personal history of pneumonia (recurrent); Z86.2 Personal history of diseases of the blood and blood-forming organs and certain disorders involving the immune mechanism; Z79.82 Long term (current) use of aspirin
CPT/HCPCS: 36415; 71046; 80053; 85025; 93005; 99283

== ENCOUNTER 2024-05-13 14:21 | Outpatient (CLI) | payer OTHER, SELFPAY ==
--- NOTE | ~2024-05-13 | MR_ITS ---
MRI of the lumbar spine Clinical History: Degenerative disc disease Technique: Axial T2-weighted images, and sagittal T1-weighted, T2-weighted, and STIR images were acqu ired. Following intravenous administration of 17 cc MultiHance gadolinium, T1-weighted fat-sat imagin g was performed in the axial and sagittal planes. COMPARISON: 07/15/2015 Findings: There is right-sided posterior fusion hardware extending from L4 through S1, with right pos terior josemanuel and right transpedicular screws present at these levels. No acute fracture evident. There is 8mm retrolisthesis of L2 over L3. There is 5 mm retrolisthesis of L3 over L4. There are reactive m arrow signal changes in the L2 and L3 vertebral bodies due to underlying degenerative disc disease. T here is minimal chronic anterior wedging deformity of L1. At L1-L2, there is severe degenerative disc disease. There is moderate to advanced facet arthropathy. No robyn central canal stenosis. There is moderate to severe right neural foraminal narrowing, and m inimal left neural foraminal narrowing. At L2-L3, there is severe degenerative disc narrowing. There is disc osteophyte complex with facet ar thropathy. There is moderate central canal stenosis/thecal sac compression, with severe bilateral panchito ral foraminal narrowing, left worse than right. L3-L4, there is severe degenerative disc narrowing. Disc bulge/osteophyte complex and degenerative fa cet arthropathy result in severe spinal canal stenosis/thecal sac compression. There is severe bilate ral neural foraminal compromise. At L4-L5, there is no disc bulge or herniation. No spinal canal stenosis evident. Possible mild right neural foraminal narrowing. Left neural foramen preserved. At L5-S1, there is no disc bulge or herniation. No spinal canal stenosis. Probable mild to moderate b ilateral neural foraminal narrowing. Paravertebral soft tissues are unremarkable. No abnormal postcontrast enhancement evident. Impression: Severe degenerative spondylosis at L2-L3 and L3-L4, as detailed above. Moderate degenerative spondylosis at L1-L2, as above. Right-sided posterior fusion from L4 through S1, unchanged. 8 mm retrolisthesis of L2 over L3. 5 mm retrolisthesis of L3 over L4. Reviewed, dictated and finalized at location M. Impression: Severe degenerative spondylosis at L2-L3 and L3-L4, as detailed above. Moderate degenerative spondylosis at L1-L2, as above. Right-sided posterior fusion from L4 through S1, unchanged. 8 mm retrolisthesis of L2 over L3. 5 mm retrolisthesis of L3 over L4.
== END 2024-05-13 14:22 | disposition home or self-care (01) ==
PROVIDERS: PCP Family Medicine; Visit Provider Physician Assistant Medical
DX: M43.16 Spondylolisthesis, lumbar region (principal); M47.896 Other spondylosis, lumbar region; M51.36 Other intervertebral disc degeneration, lumbar region; M43.27 Fusion of spine, lumbosacral region; M47.816 Spondylosis without myelopathy or radiculopathy, lumbar region; G89.29 Other chronic pain; Z98.1 Arthrodesis status
CPT/HCPCS: 72158; A9577